=== PATIENT | male | born 1935 | race Caucasian/White ===

== ENCOUNTER 2020-04-22 11:07 | Outpatient (REF) | payer MEDICARE, OTHER, SELFPAY ==
--- NOTE | 2020-04-22 11:16 | XR_ITS ---
EXAMINATION: XR KNEE, LEFT CLINICAL INFORMATION: Left knee effusion COMPARISON: None TECHNIQUE: Four views of the left knee. FINDINGS: There is medial plate and screw fixation hardware at the proximal tibia. Hardware appears intact. No acute fracture or subluxation. Healed fractures of the proximal tibia and fibula. Compartment of joint spaces are maintained at the knee. Enthesophyte formation at the superior pole of the patella. Moderate suprapatellar joint effusion. XR/XR knee LT 4V IMPRESSION: Moderate joint effusion. No acute osseous abnormality. Intact hardware.
== END 2020-04-22 11:08 | disposition home or self-care (01) ==
LOC: HO.HMGCX 11:07
PROVIDERS: Visit Provider Nurse Practitioner Family
DX: M25.462 Effusion, left knee (principal)
CPT/HCPCS: 73564

== ENCOUNTER 2020-04-29 16:21 | Inpatient (IN) | payer MEDICARE, OTHER, SELFPAY ==
--- NOTE | 2020-04-29 | XR_ITS ---
EXAMINATION: XR KNEE, RIGHT CLINICAL INFORMATION: Pain and swelling COMPARISON: None TECHNIQUE: Two views of the right knee. FINDINGS: Bones and soft tissues are normal. No fracture or joint effusion. Alignment is anatomic. Joint spaces are well maintained. No abnormal soft tissue calcification. XR/XR knee RT 2V IMPRESSION: Normal right knee.
[2020-04-29 17:08] VITALS: BP 189/74; RESP 18; TEMP 36.6; O2SAT 97; BMI 23.7
--- NOTE | 2020-04-29 18:33 | ED.LOWEXIN ---
HPI - Extremity Injury (Lower) General Chief Complaint: Extremity Injury, Lower Stated Complaint: KNEE SEELING Time Seen by Provider: 04/29/20 18:28 Source: patient Mode of arrival: wheelchair Limitations: no limitations History of Present Illness HPI Narrative: 85-year-old male with a past medical history of arthritis, hypertension here with right knee pain and swelling and redness since yesterday. No injury or trauma. No fevers or chills or body aches. Went to urgent care had an x-ray and sent to the ED for further evaluation. Onset (ago): day(s) Severity: moderate Other symptoms: none Related Data Home Medications Medication Instructions Recorded Confirmed hydrochlorothiazide 12.5 mg capsule 12.5 mg PO DAILY 04/22/20 04/29/20 Benadryl Allergy PRN 04/29/20 Previous Rx's Medication Instructions Recorded mesalamine 400 mg capsule (with 800 mg PO TID 30 Days #180 ea 04/15/20 delayed release tablets inside) Allergies Allergy/AdvReac Type Severity Reaction Status Date / Time No Known Allergies Allergy Verified 04/29/20 21:23 [No Known Allergies*] Review of Systems Review of Systems: Yes all other systems are reviewed and are negative Constitutional: Constitutional: Reports no additional constitutional complaints, Denies body ache(s), Denies chills, Denies fever(s), Denies headache(s) and Denies weakness Eyes: Eyes: Reports no additional eye complaints and Denies change in vision ENT: Reports system reviewed and no additional complaints, except as documented, Denies dizziness, Denies headache(s), Denies nasal congestion, Denies nasal discharge and Denies neck pain Cardiovascular: Cardiovascular: Reports no additional cardiovascular complaints, Denies chest pain, Denies leg edema and Denies dyspnea Respiratory: Respiratory: Reports no additional respiratory complaints, Denies cough and Denies dyspnea Gastrointestinal: Gastrointestinal: Reports no additional gastrointestinal complaints, Denies abdominal pain, Denies diarrhea, Denies nausea and Denies vomiting Genitourinary: Genitourinary: Denies urinary incontinence Musculoskeletal: Musculoskeletal: Reports no additional musculoskeletal complaints, Denies back pain, Reports arthralgias, Reports joint swelling, Reports limited range of motion, Denies neck pain, Denies numbness and Denies tingling Integumentary/Breasts: Skin/Breast: Reports system reviewed and no additional complaints, except as docu and Denies rash Neurologic: Reports system reviewed and no additional complaints, except as documented, Denies Abnormal speech present, Denies dizziness, Denies headache(s), Denies numbness, Denies tingling and Denies weakness PMFSH Past Medical History Attestation statement: The following information was validated with the patient. Source: old records reviewed and nursing notes reviewed Medical History Arthritis Colon polyp HTN (hypertension) Rectal cancer Social History Social History Advance Directives: No Advance Directives Information Provided: Yes Physical Exam Vital Signs: Vital Signs: Last Vital Signs Temp 99.4 F 04/29/20 21:11 Pulse 94 04/29/20 21:11 Resp 16 04/29/20 21:11 BP 150/77 H 04/29/20 21:11 Pulse Ox 96 04/29/20 21:11 Body Mass Index 23.7 Const: General: cooperative, healthy appearing, comfortable and no acute distress Orientation/consciousness: patient oriented x3 Limitations: no limitations HENMT: Head: Yes normal to inspection Ears: hearing grossly normal bilaterally General nose exam: Normal external nose present Face and sinus: Yes normal facial exam Mouth: Normal oral and palatal mucosa present Throat: Yes posterior oropharynx normal Eyes: General: appearance normal, both eyes and all related structures Pupils: Equal, round and reactive pupils present Neck: Neck: Yes normal visual inspection Chest: Chest palpation & inspection: normal inspection of the chest Resp: Effort & Inspection: normal respiratory effort Auscultation: clear to auscultation bilaterally Cardio: Rate: regular rate Rhythm: regular rhythm Peripheral pulses: Peripheral pulses 2+ throughout GI: Inspection: Yes normal to inspection Palpation (GI): Soft to palpation and nontender Auscultation: normal bowel sounds Back/Spine/Pelvis: Thoracic/Lumbar Spine: thoracic and lumbar spine normal to inspection Skin: General skin exam: no rashes or lesions noted Neuro: General: patient oriented x3, no focal motor deficits and normal sensation to monofilament Cranial nerves: Yes Equal, round and reactive pupils present Cognition (Neuro): normal cognition Speech: No Abnormal speech present Gait exam (Neuro): Normal gait present Motor exam (neuro): 5/5 motor strength present throughout Extrem: Other: The patient has the knee in partial flexion. He is unable to extend the knee. He has warmth and redness and swelling over the patellar area. There is a joint effusion. extending over the anterior leg there is erythema which is not circumferential. General: Yes normal to inspection Course Course Course Narrative: Right knee pain, swelling, redness and warmth since yesterday. Unable to extend the knee. Concern for septic joint. Will need diagnostic tap, labs including blood cultures and lactic acid. 909- Synovial tap shows a WBC count 84,000 with neutrophils 98%. patient has a temp of 100.[address] here. Discussed with Dr. Church (orthopedics) plan for admission. Requesting medicine admit. Patient has already received ceftriaxone. Vancomycin added. Call out to hospitalist to discuss admit. [id number]-Discussed with Dr Cruz who accepted admission. Procedures Joint Aspiration/Injection Joint Asp./Inject. 1: Time Out Performed: No Side of body: right Joint Aspirated: knee Ultrasound Guidance: No Skin Prep: Chlorhexidine Local Anesthetic: lidocaine 2% Needle Size Used: 18G Fluid Obtained: purulent Total fluid obtained (mL): 60 Patient Tolerated Procedure: well Complications: none MDM - Extremity Injury (Lower) MDM Narrative Medical decision making narrative: Bursitis, septic joint, gout Medical Records Attestation: I reviewed the patient's medical records. Lab Data Attestation: I reviewed the patient's lab results. Result diagrams: 04/29/20 19:34 04/29/20 19:34 Labs: Lab Results 04/29/20 04/29/20 04/29/20 Range/Units 19:34 19:34 19:34 WBC 9.5 (4.8-10.8) X10*3/uL RBC 4.66 (4.60-5.80) X10*6/uL Hgb 15.3 (14.0-18.0) g/dl Hct 45.4 (42-52) % MCV 97.4 (80-98) fL MCH 32.8 (27.0-33.0) pg MCHC 33.7 (31.0-36.0) g/dl RDW 12.5 (11.0-16.0) % Plt Count 296 (160-400) X10*3/uL MPV 9.8 (9.4-12.4) fL Immature Gran % (Auto) 0.2 (0.0-0.4) % Neut % (Auto) 79.6 H (45-73) % Lymph % (Auto) 9.5 L (20-40) % [place] % (Auto) 9.7 (2-11) % Eos % (Auto) 0.7 (0-4) % Baso % (Auto) 0.3 (0-2) % Lymph # (Auto) 0.9 L (1.2-4.9) X10*3/uL [place] # (Auto) 0.9 (0.1-1.2) X10*3/uL Eos # (Auto) 0.1 (0.0-0.4) X10*3/uL Baso # (Auto) 0.0 (0.0-0.2) X10*3/uL Abs Immat Gran (auto) 0.02 (0.00-0.03) X10*3/uL Absolute Neuts (auto) 7.5 (2.0-8.3) X10*3/uL Absolute Nucleated RBC 0.000 (0.0-0.012) X10*3/uL Nucleated RBC % (auto) 0.0 (0.0-0.2) /100WBC Sodium 140 (135-145) mmol/L Potassium 3.9 (3.3-5.1) mmol/l Chloride 100 (96-108) mmol/L Carbon Dioxide 29 (22-29) mmol/L Anion Gap 15 (12-20) BUN 22 H (9-16) mg/dL Creatinine 1.15 (0.5-1.4) mg/dL Estim Creat Clear Calc 47.0 Estimated GFR > 60 Random Glucose 108 (60-115) mg/dL Lactic Acid 1.2 (0.5-2.0) mmol/L Calcium 8.4 (8.4-10.2) mg/dL Synovial Source Synovial WBC X10*3/uL Synovial RBC X10*6/uL Synovial Neutrophils % Synovial Monocytes % COVID-19 (MATTHEW) COVID-19 Clin Com 04/29/20 04/29/20 Range/Units 19:41 Unknown WBC (4.8-10.8) X10*3/uL RBC (4.60-5.80) X10*6/uL Hgb (14.0-18.0) g/dl Hct (42-52) % MCV (80-98) fL MCH (27.0-33.0) pg MCHC (31.0-36.0) g/dl RDW (11.0-16.0) % Plt Count (160-400) X10*3/uL MPV (9.4-12.4) fL Immature Gran % (Auto) (0.0-0.4) % Neut % (Auto) (45-73) % Lymph % (Auto) (20-40) % [place] % (Auto) (2-11) % Eos % (Auto) (0-4) % Baso % (Auto) (0-2) % Lymph # (Auto) (1.2-4.9) X10*3/uL [place] # (Auto) (0.1-1.2) X10*3/uL Eos # (Auto) (0.0-0.4) X10*3/uL Baso # (Auto) (0.0-0.2) X10*3/uL Abs Immat Gran (auto) (0.00-0.03) X10*3/uL Absolute Neuts (auto) (2.0-8.3) X10*3/uL Absolute Nucleated RBC (0.0-0.012) X10*3/uL Nucleated RBC % (auto) (0.0-0.2) /100WBC Sodium (135-145) mmol/L Potassium (3.3-5.1) mmol/l Chloride (96-108) mmol/L Carbon Dioxide (22-29) mmol/L Anion Gap (12-20) BUN (9-16) mg/dL Creatinine (0.5-1.4) mg/dL Estim Creat Clear Calc Estimated GFR Random Glucose (60-115) mg/dL Lactic Acid (0.5-2.0) mmol/L Calcium (8.4-10.2) mg/dL Synovial Source Synovial WBC 84.010 X10*3/uL Synovial RBC 0.014 X10*6/uL Synovial Neutrophils 98 % Synovial Monocytes 2 % COVID-19 (MATTHEW) Cancelled COVID-19 Clin Com Cancelled Imaging Data knee xray: Attestation: I personally reviewed and interpreted this imaging study as follows: Radiologist's impression: EXAMINATION: XR KNEE, RIGHT CLINICAL INFORMATION: Pain and swelling COMPARISON: None TECHNIQUE: Two views of the right knee. FINDINGS: Bones and soft tissues are normal. No fracture or joint effusion. Alignment is anatomic. Joint spaces are well maintained. No abnormal soft tissue calcification. XR/XR knee RT 2V IMPRESSION: Normal right knee. Discharge Plan Discharge Clinical Impression: Septic arthritis of knee, right Qualifiers: Septic arthritis organism: due to unspecified organism Qualified Code(s): M00.9 - Pyogenic arthritis, unspecified Patient Disposition: Admitted As Inpatient
[2020-04-29 19:38] LABS: RBC Synovial Fluid 0.014 X10*6/uL
[2020-04-29 19:49] VITALS: BP 111/88; PULSE 93; RESP 18; TEMP 38; O2SAT 95
[2020-04-29 19:52] LABS: MANUAL DIFF FLAG NO
[2020-04-29 20:03] LABS: Basophils Percent Auto 0.3 % (0-2); Eosinophils Absolute Auto 0.1 X10*3/uL (0.0-0.4); Eosinophils Percent Auto 0.7 % (0-4); Hematocrit 45.4 % (42-52); Hemoglobin 15.3 g/dl (14.0-18.0); Imm Gran Abs Auto 0.02 X10*3/uL (0.00-0.03); Imm Gran Pct Auto 0.2 % (0.0-0.4); Lymphocytes Absolute Auto 0.9 X10*3/uL (1.2-4.9); Lymphocytes Percent Auto 9.5 % (20-40); Mean Corpuscular HGB Conc 33.7 g/dl (31.0-36.0); Mean Corpuscular Hemoglobin 32.8 pg (27.0-33.0); Mean Corpuscular Volume 97.4 fL (80-98); Mean Platelet Volume 9.8 fL (9.4-12.4); Monocytes Absolute Auto 0.9 X10*3/uL (0.1-1.2); Monocytes Percent Auto 9.7 % (2-11); Neutrophils Absolute Auto 7.5 X10*3/uL (2.0-8.3); Neutrophils Percent Auto 79.6 % (45-73); Platelet Count 296 X10*3/uL (160-400); Red Blood Count 4.66 X10*6/uL (4.60-5.80); Red Cell Distribution Width 12.5 % (11.0-16.0); White Blood Count 9.5 X10*3/uL (4.8-10.8)
[2020-04-29 20:19] LABS: Lactic Acid 1.2 mmol/L (0.5-2.0)
[2020-04-29 20:23] LABS: Anion Gap 15 (12-20); Blood Urea Nitrogen 22 mg/dL (9-16); Calcium 8.4 mg/dL (8.4-10.2); Carbon Dioxide 29 mmol/L (22-29); Chloride 100 mmol/L (96-108); Estimated Glomerular Filt Rate > 60; Glucose Random 108 mg/dL (60-115); Potassium 3.9 mmol/l (3.3-5.1); Sodium 140 mmol/L (135-145)
[2020-04-29] MEDS: Acetaminophen 325 MG TABLET 650 MG PO (20:27)
[2020-04-29] MEDS: Lidocaine HCl 2 % MPF 5 ML VIAL SUBCUT (20:28)
[2020-04-29] MEDS: cefTRIAXone sodium 1 GM in 0.9 % Sodium Chloride 50 ML IV (20:28)
[2020-04-29 20:35] LABS: MN% 6.6 %; PMN% 93.4 %
[2020-04-29 20:37] LABS: BF Shift QC OK YES; Monocytes Synovial Fluid 2 %; Neutrophils Synovial Fluid 98 %
[2020-04-29 20:38] LABS: Man Diluent Bkgrd OK YES
[2020-04-29 21:11] VITALS: BP 150/77; PULSE 94; RESP 16; TEMP 37.4; O2SAT 96
[2020-04-29 21:41] LABS: COVID-19 Test Negative (Negative); IDNOW Serial# 9DD0AD1C
[2020-04-29] MEDS: vancomycin HCL 1,000 MG in 0.9 % Sodium Chloride 250 ML 270 MG IV (21:53)
[2020-04-29 21:59] VITALS: BP 127/67; PULSE 92; RESP 17; O2SAT 96
[2020-04-29 23:20] VITALS: BP 152/83; PULSE 92; RESP 18; TEMP 37.4; O2SAT 97
[2020-04-29] MEDS: Enoxaparin Sodium 40 MG/0.4 ML SYRINGE SUBCUT (23:29)
[2020-04-29] MEDS: 0.9 % Sodium Chloride Flush 3 ML SYRINGE IVFLUSH (23:29)
--- NOTE | 2020-04-30 00:26 | PM.IMHP ---
History of Present Illness Date of Service: 04/29/20 Chief Complaint: Knee pain and swelling this is a pleasant 85-year-old male with past medical history of hypertension, as well as colitis who presents to the hospital with right knee pain, and swelling. Patient reports that his symptoms started yesterday where he noticed right knee to be swollen, more red and significantly hot. He denies any fever or chills. Patient reports that he has chronic left knee/ leg pain due to injury and replacement and sometimes when his left knee hurts he puts a lot more pressure on the right knee but this time the pain in his right knee was significant to the point that he had to go to urgent care who sent him to the ED for further evaluation. He otherwise denies any history of gout. No chest pain, shortness of breath, headache or change in vision, no abdominal pain nausea or diarrhea, no urinary symptoms. No lower extremity edema except in his Right knee. denies any injury to the right knee. On arrival to the ED hemodynamically stable with no significant abnormal vitals labs are essentially unremarkable with no leukocytosis or any other abnormality arthrocentesis was performed in the ED, orthopedic surgeon was contacted, patient started on IV antibiotics and will be admitted for further management. Past medical history: Hypertension, colitis, history of rectal cancer status post resection past surgical history: Rectal cancer resection Family history: Denies Social history: Comes from home, lives alone, denies tobacco alcohol or illicit drug use Review of Systems Review of Systems: Yes all other systems are reviewed and are negative Neurologic: Reports system reviewed and no additional complaints, except as documented and Denies Abnormal speech present [facility] Medical History Arthritis Colon polyp HTN (hypertension) Rectal cancer Social History Household Members: Family and Other Household Members Other:: sister Housing: House Do you presently have visiting nurse or other home services: No Smoking Status: Former smoker Tobacco Type: Cigarette Smoked in Last 30 Days: No Smoking Quit Date: 2006 Patient Interested in Nicotine Replacement: No Patient Given Instructions on How to Stop Smoking: No Second Hand Smoke Exposure: No Use of substances other than those prescribed or required for medical reasons: No Have you been hit, kicked, punched, or otherwise hurt by someone within the past year? If so, by whom?: No Do you feel safe in your current relationship?: No Is there a partner from a previous relationship who is making you feel unsafe now?: No Are you made to feel afraid or neglected: No Advance Directives: No Advance Directives Information Provided: Yes Do you have thoughts of harming others: None Do you have a plan to hurt others: No Plan Recently lost weight without trying: No Meds Allergies Allergy/AdvReac Type Severity Reaction Status Date / Time No Known Allergies Allergy Verified 04/29/20 21:23 [No Known Allergies*] Home Medications Medication Instructions Recorded Confirmed Type hydrochlorothiazide 12.5 mg capsule 12.5 mg PO DAILY 04/22/20 04/29/20 History Benadryl Allergy 25 mg PO DAILY PRN 04/29/20 04/29/20 History Physical Exam Vital Signs and Narrative: Vital Signs: Last Vital Signs Temp 99.3 F 04/29/20 23:20 Pulse 92 04/29/20 23:20 Resp 18 04/29/20 23:20 BP 152/83 H 04/29/20 23:20 Pulse Ox 97 04/29/20 23:20 Body Mass Index 23.7 Const: General: cooperative and no acute distress Orientation/consciousness: patient oriented x3 Eyes: General: appearance normal, both eyes and all related structures Pupils: Equal, round and reactive pupils present Resp: Effort & Inspection: normal respiratory effort and able to speak in complete sentences Auscultation: clear to auscultation bilaterally Cardio: Rate: regular rate Rhythm: regular rhythm GI: Palpation (GI): Soft to palpation Auscultation: normal bowel sounds Skin: General skin exam: no rashes or lesions noted Neuro: General: patient oriented x3 Cranial nerves: Yes Equal, round and reactive pupils present Cognition (Neuro): normal cognition Speech: No Abnormal speech present Extrem: Other: right knee edema, warmth, tenderness left knee exam within normal with no abnormality Results Labs CBC and Chem 7: 04/29/20 19:34 04/29/20 19:34 Labs: Laboratory Results - last 24 hr 04/29/20 04/29/20 04/29/20 19:34 19:34 19:34 MCV 97.4 MCH 32.8 MCHC 33.7 RDW 12.5 Plt Count 296 MPV 9.8 Immature Gran % (Auto) 0.2 Neut % (Auto) 79.6 H Lymph % (Auto) 9.5 L [place] % (Auto) 9.7 Eos % (Auto) 0.7 Baso % (Auto) 0.3 Lymph # (Auto) 0.9 L [place] # (Auto) 0.9 Eos # (Auto) 0.1 Baso # (Auto) 0.0 Abs Immat Gran (auto) 0.02 Absolute Neuts (auto) 7.5 Absolute Nucleated RBC 0.000 Nucleated RBC % (auto) 0.0 Anion Gap 15 Estim Creat Clear Calc 47.0 Estimated GFR > 60 Random Glucose 108 Lactic Acid 1.2 Calcium 8.4 Synovial Source Synovial WBC Synovial RBC Synovial Neutrophils Synovial Monocytes COVID-19 (MATTHEW) COVID-19 Clin Com 04/29/20 04/29/20 04/29/20 19:41 20:46 Unknown MCV MCH MCHC RDW Plt Count MPV Immature Gran % (Auto) Neut % (Auto) Lymph % (Auto) [place] % (Auto) Eos % (Auto) Baso % (Auto) Lymph # (Auto) [place] # (Auto) Eos # (Auto) Baso # (Auto) Abs Immat Gran (auto) Absolute Neuts (auto) Absolute Nucleated RBC Nucleated RBC % (auto) Anion Gap Estim Creat Clear Calc Estimated GFR Random Glucose Lactic Acid Calcium Synovial Source Synovial WBC 84.010 Synovial RBC 0.014 Synovial Neutrophils 98 Synovial Monocytes 2 COVID-19 (MATTHEW) Cancelled Negative COVID-19 Clin Com Cancelled See Note Imaging Radiologist's Impressions: Impressions Knee X-Ray 04/29/20 00:00 IMPRESSION: Normal right knee. Assessment and Plan (1) Septic arthritis of knee, right: Qualifiers: Septic arthritis organism: due to unspecified organism Qualified Code(s): M00.9 - Pyogenic arthritis, unspecified Status: Acute (2) Knee effusion, left: Status: Acute (3) HTN (hypertension): Status: Acute this is a gentleman with past medical history of hypertension who presents to the hospital with complaints of right knee pain, swelling and tenderness # right knee septic arthritis - status post arthrocentesis in the ED - patient has no systemic evidence of infection at this time - afebrile no leukocytosis Plan: - Follow cultures - broad-spectrum antibiotics - orthopedic consulted # hypertension - stable - continue hydrochlorothiazide # history of colitis - continue family
[2020-04-30 03:28] VITALS: BP 159/80; PULSE 75; RESP 18; TEMP 37.1; O2SAT 96
[2020-04-30 04:40] LABS: MANUAL DIFF FLAG NO
[2020-04-30 04:42] LABS: Basophils Percent Auto 0.3 % (0-2); Eosinophils Percent Auto 0.4 % (0-4); Hematocrit 41.6 % (42-52); Hemoglobin 13.8 g/dl (14.0-18.0); Imm Gran Abs Auto 0.02 X10*3/uL (0.00-0.03); Imm Gran Pct Auto 0.2 % (0.0-0.4); Lymphocytes Absolute Auto 1.2 X10*3/uL (1.2-4.9); Lymphocytes Percent Auto 12.7 % (20-40); Mean Corpuscular HGB Conc 33.2 g/dl (31.0-36.0); Mean Corpuscular Hemoglobin 32.3 pg (27.0-33.0); Mean Corpuscular Volume 97.4 fL (80-98); Mean Platelet Volume 9.6 fL (9.4-12.4); Monocytes Absolute Auto 1.2 X10*3/uL (0.1-1.2); Monocytes Percent Auto 13.1 % (2-11); Neutrophils Absolute Auto 6.6 X10*3/uL (2.0-8.3); Neutrophils Percent Auto 73.3 % (45-73); Platelet Count 262 X10*3/uL (160-400); Red Blood Count 4.27 X10*6/uL (4.60-5.80); Red Cell Distribution Width 12.6 % (11.0-16.0); White Blood Count 9.1 X10*3/uL (4.8-10.8)
[2020-04-30 05:13] LABS: Anion Gap 14 (12-20); Blood Urea Nitrogen 20 mg/dL (9-16); Calcium 7.9 mg/dL (8.4-10.2); Carbon Dioxide 27 mmol/L (22-29); Chloride 99 mmol/L (96-108); Creatinine Clr Calc Pharmacy 50.6; Estimated Glomerular Filt Rate > 60; Glucose Random 124 mg/dL (60-115); Potassium 3.5 mmol/l (3.3-5.1); Sodium 136 mmol/L (135-145)
[2020-04-30] MEDS: Flu Vacc QS2020-21(6mos up)/PF 0.5 ML SYRINGE IM (05:31)
[2020-04-30] MEDS: Acetaminophen 325 MG TABLET 650 MG PO ×2 (05:55→17:14)
[2020-04-30] MEDS: oxyCODONE HCl Immed Release 5 MG TABLET PO ×2 (06:24→12:37)
[2020-04-30 07:18] VITALS: BP 160/82; PULSE 89; RESP 19; TEMP 37.4; O2SAT 94
--- NOTE | 2020-04-30 09:17 | PM.CNOR ---
History of Present Illness HPI Consult date: 04/30/20 Chief complaint: Septic Arthritis Narrative: This is an 85-year-old gentleman who presented to the emergency department yesterday for right knee pain and swelling. He was previously seen at the urgent care clinic and was directed to go to the emergency department. While in the emergency department he was found have an effusion which was aspirated with about 60 cc of cloudy fluid. Synovial fluid showed 84 white blood cells and 98 neutrophils. Currently he has a temperature of 90 degrees and 0.4 and white count of 9.1. He denies injury to the right knee he states that often he has left knee pain from a previous surgery he had therefore he favors the left and pulse all as weight on the right. Patient was admitted to the hospital service to be started on IV antibiotics orthopedics was consult for a further evaluation. Review of Systems Review of Systems: Yes all other systems are reviewed and are negative Constitutional: Constitutional: Denies headache(s) and Denies weakness ENT: Denies dizziness and Denies headache(s) Musculoskeletal: Musculoskeletal: Denies numbness and Denies tingling Neurologic: Reports system reviewed and no additional complaints, except as documented, Denies Abnormal speech present, Denies dizziness, Denies headache(s), Denies numbness, Denies tingling and Denies weakness [facility] Past Medical History Medical History (Updated 04/30/20 @ 09:22 by Corin Power PA-C) Arthritis Colon polyp HTN (hypertension) Rectal cancer Social History Social History Household Members: Family and Other Household Members Other:: sister Housing: House Do you presently have visiting nurse or other home services: No Smoking Status: Former smoker Tobacco Type: Cigarette Smoked in Last 30 Days: No Smoking Quit Date: 2006 Patient Interested in Nicotine Replacement: No Patient Given Instructions on How to Stop Smoking: No Second Hand Smoke Exposure: No Use of substances other than those prescribed or required for medical reasons: No Currently Displaying Signs/Symptoms of Drug Intoxication Withdrawal: No Have you been hit, kicked, punched, or otherwise hurt by someone within the past year? If so, by whom?: No Do you feel safe in your current relationship?: No Is there a partner from a previous relationship who is making you feel unsafe now?: No Are you made to feel afraid or neglected: No Advance Directives: No Advance Directives Information Provided: Yes Do you have thoughts of harming others: None Do you have a plan to hurt others: No Plan Recently lost weight without trying: No Meds Allergies Allergy/AdvReac Type Severity Reaction Status Date / Time No Known Allergies Allergy Verified 04/29/20 21:23 [No Known Allergies*] Home Medications Medication Instructions Recorded Confirmed Type hydrochlorothiazide 12.5 mg capsule 12.5 mg PO DAILY 04/22/20 04/29/20 History Benadryl Allergy 25 mg PO DAILY PRN 04/29/20 04/29/20 History Physical Exam Vital Signs: Vital Signs: Last Vital Signs Temp 99.4 F 04/30/20 07:18 Pulse 89 04/30/20 07:18 Resp 19 04/30/20 07:18 BP 160/82 H 04/30/20 07:18 Pulse Ox 94 04/30/20 07:18 Body Mass Index 23.7 Const: General: cooperative and no acute distress Orientation/consciousness: patient oriented x3 Resp: Effort & Inspection: normal respiratory effort and able to speak in complete sentences Cardio: Peripheral pulses: Peripheral pulses 2+ throughout Neuro: General: patient oriented x3 Speech: No Abnormal speech present Extrem: Other: Right knee skin intact. There is a trace amount of redness over the anterior aspect of the knee along the bursa. There is some warmth. He is able to actively flex the knee to 90 degrees. He can actively extend the knee with about 10 degrees of extension lag. There is a trace amount of joint effusion present. No significant tenderness to palpation. Calf supple nontender. X-rays of the right knee are unremarkable. Trace effusion Results Labs Result Diagrams: 04/30/20 04:23 04/30/20 04:23 Labs: Abnormal lab results 04/29/20 04/29/20 04/30/20 Range/Units 19:34 19:34 04:23 RBC 4.27 L (4.60-5.80) X10*6/uL Hgb 13.8 L (14.0-18.0) g/dl Hct 41.6 L (42-52) % Neut % (Auto) 79.6 H 73.3 H (45-73) % Lymph % (Auto) 9.5 L 12.7 L (20-40) % [place] % (Auto) 13.1 H (2-11) % Lymph # (Auto) 0.9 L (1.2-4.9) X10*3/uL BUN 22 H (9-16) mg/dL Random Glucose (60-115) mg/dL Calcium (8.4-10.2) mg/dL 04/30/20 Range/Units 04:23 RBC (4.60-5.80) X10*6/uL Hgb (14.0-18.0) g/dl Hct (42-52) % Neut % (Auto) (45-73) % Lymph % (Auto) (20-40) % [place] % (Auto) (2-11) % Lymph # (Auto) (1.2-4.9) X10*3/uL BUN 20 H (9-16) mg/dL Random Glucose 124 H (60-115) mg/dL Calcium 7.9 L (8.4-10.2) mg/dL H & H 04/29/20 04/30/20 Range/Units 19:34 04:23 Hgb 15.3 13.8 L (14.0-18.0) g/dl Hct 45.4 41.6 L (42-52) % All other labs normal. Assessment and Plan (1) Effusion, right knee: Status: Acute I discussed the case with Dr. Church and also the explained to the patient that if this does not seem to be a completely infective process that needs surgical intervention at this time. He is responding to IV antibiotics and therefore we will continue to monitor him over the next 24 hours to see if he continues to improve. I would encourage him to get up out of bed and move around and try to work on range of motion of the knee. He can have a regular diet at this time we will keep him NPO after midnight in case things change.
[2020-04-30] MEDS: 0.9 % Sodium Chloride Flush 3 ML SYRINGE IVFLUSH ×3 (09:29→23:24)
[2020-04-30 11:31] VITALS: BP 165/89; PULSE 95; RESP 17; TEMP 37.7; O2SAT 96
--- NOTE | 2020-04-30 12:48 | P.PNIM_ITS ---
Subjective Subjective Date of Service: 04/30/20 Interval History: patient complaining of persistent right knee pain and swelling denies any fever, no chills and no other acute issues since admission. Review of Systems General no headache, no dizziness, no fever chills. CVS no chest pain, no palpitation. Respiratory no cough, no sob Gastrointestinal no nausea, no vomiting, no abdominal pain Physical Exam Vital Signs: Vital Signs: Last Vital Signs Temp 99.8 F 04/30/20 11:31 Pulse 95 04/30/20 11:31 Resp 17 04/30/20 11:31 BP 165/89 H 04/30/20 11:31 Pulse Ox 96 04/30/20 11:31 Body Mass Index 23.7 General patient resting comfortably in no acute distress. Neck supple no JVD. CVS regular rate rhythm, Respiratory lungs clear to auscultation, no respiratory distress Gastrointestinal abdomen soft, nontender, bowel sounds audible. Right knee warm to touch, tender to palpation and hyperemic, + swelling, limited extension Neuro nonfocal patient moving all 4 extremity speech clear. Skin no rash Objective Data Current Medications Generic Name Dose Route Start Last Admin Trade Name Freq PRN Reason Stop Dose Admin Acetaminophen 650 mg 04/29/20 22:44 04/30/20 05:55 Acetaminophen 325 Mg Tablet PO 650 mg Q6H PRN Administration Pain, Mild (Pain Scale 1-3) Amlodipine Besylate 5 mg 04/30/20 12:20 Amlodipine Besylate 5 Mg Tablet PO DAILY [facility] Protocol Diphenhydramine HCl 25 mg 04/30/20 12:47 Diphenhydramine Hcl 25 Mg Tablet PO DAILY PRN Allergy Symptoms Docusate Sodium 100 mg 04/29/20 22:44 Docusate Sodium 100 Mg Capsule PO DAILY PRN Constipation Enoxaparin Sodium 40 mg 04/29/20 23:00 04/29/20 23:29 Enoxaparin Sodium 40 Mg/0.4 Ml Syringe SUBCUT 40 mg Q24H [facility] Administration Ceftriaxone Sodium 1 gm/ 50 mls @ 100 mls/hr 04/30/20 22:00 Sodium Chloride IV Q24H BRYAN Vancomycin HCl 750 mg/ 275 mls @ 183.333 mls/hr 04/30/20 21:00 Vancomycin HCl 500 mg/ Sodium IV Chloride Q24H [facility] Mesalamine 800 mg 04/30/20 15:00 Mesalamine 400 Mg Cap.Drtab. PO TID [facility] Omeprazole 20 mg 04/30/20 12:30 Omeprazole 20 Mg Capsule.Dr PO DAILY@0630 [facility] Ondansetron HCl 4 mg 04/29/20 22:44 Ondansetron Hcl 4 Mg/2 Ml Vial IVPUSH Q8H PRN Nausea and Vomiting Oxycodone HCl 5 mg 04/30/20 01:36 04/30/20 12:37 Oxycodone Hcl Immed Release 5 Mg Tablet PO 5 mg Q6H PRN Administration Pain, Severe (Pain Scale 7-10) Pharmacy Consult 1 each 04/29/20 19:12 Consult Rx Perform Med Rec MISCELLANE ONCE PRN Consult order Prednisone 20 mg 04/30/20 12:25 Prednisone 20 Mg Tablet PO BIDWM [facility] Sodium Chloride 3 ml 04/30/20 00:00 04/30/20 09:29 0.9 % Sodium Chloride Flush 3 Ml Syringe IVFLUSH 3 ml QSHIFT [facility] Administration Labs CBC & Chem 7: 04/30/20 04:23 04/30/20 04:23 Microbiology Microbiology Results: Microbiology 04/29/20 Unknown Knee aspirate Gram Stain - Final 04/29/20 Unknown Knee aspirate Gross Specimen Examination - Final 04/29/20 Unknown Knee aspirate Fluid Crystals - Final 04/29/20 Unknown Knee aspirate Joint Fluid Culture - Preliminary No growth to date. Assessment and Plan (1) Effusion, right knee: Status: Acute (2) HTN (hypertension): Status: Acute Assessment and Plan: # right knee pain swelling and redness different patient diagnosis septic arthritis/ septic bursitis/gout status post right knee aspiration fluid culture showed no growth, there is 1+ intracellular monosodium urate crystals, synovial WBC 94075 with 98% neutrophils, most likely patient has gout will start patient on prednisone 20 mg b.i.d. and add Prilosec for GI prophylaxis, patient being followed by Orthopedic surgery for concern for septic arthritis with seems less likely with no fevers, no WBC count, will follow blood cultures and clinical course, will discontinue hydrochlorothiazide since causes hyperuricemia, obtain LOUIE jones on ceftriaxone and IV vanco day 1 if diagnosis of septic arthritis remains low will discontinue medications once blood cultures are negative. # hypertension - BP elevated will add Norvasc 5 mg by mouth daily since hydrochlorothiazide discontinued due to gout # history of colitis - continue home medications mesalamine,no flare noted. # DVT prophylaxis with Lovenox
[2020-04-30] MEDS: Mesalamine 400 MG CAP.DRTAB. 800 MG PO ×2 (12:50→17:54)
[2020-04-30] MEDS: amLODIPine Besylate 5 MG TABLET PO (12:50)
[2020-04-30] MEDS: Omeprazole 20 MG CAPSULE.DR PO (12:50)
[2020-04-30] MEDS: predniSONE 20 MG TABLET PO ×2 (12:50→17:14)
--- NOTE | 2020-04-30 14:09 | MHC.CM.PN ---
Met with very pleasant gentleman who is A&ox3. Lives with his sister. Is a . Sister, Berenice Holloway ([phone]) is his HCP. Pt in process of finding new PCP. States his PCP retired and He is hoping to see Shyam Santana in May. IMM reviewed and signed. Right knee quite sore with limited ROM. Diagnosis changed to GOUT. May benefit from PT evaluation prior to D/C. D/C plan is home and services pending PT evaluation. MD aware. Will follow for D/C needs
[2020-04-30 15:19] VITALS: BP 149/78; PULSE 99; RESP 18; TEMP 37.6; O2SAT 95
[2020-04-30 19:32] VITALS: BP 143/75; PULSE 79; RESP 18; TEMP 36.8; O2SAT 95
[2020-04-30] MEDS: Enoxaparin Sodium 40 MG/0.4 ML SYRINGE SUBCUT (21:39)
[2020-04-30] MEDS: cefTRIAXone sodium 1 GM in 0.9 % Sodium Chloride 50 ML IV (21:39)
[2020-04-30 23:43] VITALS: BP 133/68; PULSE 66; RESP 18; TEMP 36.6; O2SAT 93
[2020-05-01] VITALS (8 sets, daily range): BP systolic 135–149; BP diastolic 70–81; PULSE 61–92; RESP 17–18; TEMP 36.2–37.3; O2SAT 95–99
[2020-05-01] MEDS: Omeprazole 20 MG CAPSULE.DR PO (06:03)
[2020-05-01] MEDS: Mesalamine 400 MG CAP.DRTAB. 800 MG PO ×3 (08:39→21:40)
[2020-05-01] MEDS: predniSONE 20 MG TABLET PO ×2 (08:40→16:48)
[2020-05-01] MEDS: amLODIPine Besylate 5 MG TABLET PO (08:40)
[2020-05-01] MEDS: 0.9 % Sodium Chloride Flush 3 ML SYRINGE IVFLUSH ×2 (08:41→16:49)
--- NOTE | 2020-05-01 13:22 | HO.PM.IMPN ---
Subjective Subjective Date of Service: 05/01/20 Interval History: patient sitting up in bed eating breakfast feels right knee pain is significantly better but not completely resolved, no fever chills overnight no other acute issues Review of Systems General no headache no dizziness no fever chills. CVS no chest pain, no palpitation. Respiratory no cough, no shortness of breath Gastrointestinal no nausea, no vomiting, no abdominal pain Physical Exam Vital Signs: Vital Signs: Last Vital Signs Temp 97.3 F 05/01/20 11:18 Pulse 83 05/01/20 11:18 Resp 18 05/01/20 11:18 BP 135/70 05/01/20 11:39 Pulse Ox 98 05/01/20 11:39 Body Mass Index 23.7 General patient resting comfortably in no acute distress. Neck is supple no JVD. CVS regular rate rhythm, Respiratory lungs clear to auscultation, no respiratory distress, no wheeze, no rhonchi. Gastrointestinal abdomen soft, nontender, bowel sounds audible Right knee, significant improvement in redness, swelling and tenderness persistent limitation in movement Extremities no edema. Neuro nonfocal Skin no rash Objective Data Current Medications Generic Name Dose Route Start Last Admin Trade Name Freq PRN Reason Stop Dose Admin Acetaminophen 650 mg 04/29/20 22:44 04/30/20 17:14 Acetaminophen 325 Mg Tablet PO 650 mg Q6H PRN Administration Pain, Mild (Pain Scale 1-3) Amlodipine Besylate 5 mg 04/30/20 12:20 05/01/20 08:40 Amlodipine Besylate 5 Mg Tablet PO 5 mg DAILY [facility] Administration Protocol Diphenhydramine HCl 25 mg 04/30/20 12:47 Diphenhydramine Hcl 25 Mg Tablet PO DAILY PRN Allergy Symptoms Docusate Sodium 100 mg 04/29/20 22:44 Docusate Sodium 100 Mg Capsule PO DAILY PRN Constipation Enoxaparin Sodium 40 mg 04/29/20 23:00 04/30/20 21:39 Enoxaparin Sodium 40 Mg/0.4 Ml Syringe SUBCUT 40 mg Q24H [facility] Administration Ceftriaxone Sodium 1 gm/ 50 mls @ 100 mls/hr 04/30/20 22:00 04/30/20 23:06 Sodium Chloride IV Infused Q24H [facility] Infusion Vancomycin HCl 750 mg/ 275 mls @ 183.333 mls/hr 04/30/20 21:00 04/30/20 21:58 Vancomycin HCl 500 mg/ Sodium IV Infused Chloride Q24H [facility] Infusion Mesalamine 800 mg 04/30/20 15:00 05/01/20 08:39 Mesalamine 400 Mg Cap.Drtab. PO 800 mg TID [facility] Administration Omeprazole 20 mg 04/30/20 12:30 05/01/20 06:03 Omeprazole 20 Mg Capsule.Dr PO 20 mg DAILY@0630 [facility] Administration Ondansetron HCl 4 mg 04/29/20 22:44 Ondansetron Hcl 4 Mg/2 Ml Vial IVPUSH Q8H PRN Nausea and Vomiting Oxycodone HCl 5 mg 04/30/20 01:36 04/30/20 12:37 Oxycodone Hcl Immed Release 5 Mg Tablet PO 5 mg Q6H PRN Administration Pain, Severe (Pain Scale 7-10) Pharmacy Consult 1 each 04/29/20 19:12 Consult Rx Perform Med Rec MISCELLANE ONCE PRN Consult order Prednisone 20 mg 04/30/20 12:25 05/01/20 08:40 Prednisone 20 Mg Tablet PO 20 mg BIDWM [facility] Administration Sodium Chloride 3 ml 04/30/20 00:00 05/01/20 08:41 0.9 % Sodium Chloride Flush 3 Ml Syringe IVFLUSH 3 ml QSHIFT [facility] Administration Labs CBC & Chem 7: 04/30/20 04:23 04/30/20 04:23 Microbiology Microbiology Results: Microbiology 04/29/20 Unknown Knee aspirate Gram Stain - Final 04/29/20 Unknown Knee aspirate Gross Specimen Examination - Final 04/29/20 Unknown Knee aspirate Fluid Crystals - Final 04/29/20 Unknown Knee aspirate Joint Fluid Culture - Final No growth after 2 days 04/29/20 19:42 Blood - Venous Blood Culture - Preliminary No growth after 24 hours. 04/29/20 19:34 Blood - Venous Blood Culture - Preliminary No growth after 24 hours. Assessment and Plan (1) Effusion, right knee: Status: Acute (2) HTN (hypertension): Status: Acute (3) Septic arthritis of knee, right: Status: Acute (4) Gout attack: Status: Acute Assessment and Plan: # right knee pain swelling and redness differential diagnosis septic arthritis/ septic bursitis/gout status post right knee aspiration fluid culture showed no growth, there is 1+ intracellular monosodium urate crystals, synovial WBC 81307 with 98% neutrophils, most likely patient has gout patient right knee swelling and pain is improving will continue prednisone 20 mg b.i.d. and Prilosec for GI prophylaxis, patient being followed by Orthopedic surgery for concern for septic arthritis which seems less likely with no fevers, no WBC count, blood cultures x2 are negative, discontinued hydrochlorothiazide since causes hyperuricemia,on ceftriaxone and IV vanco day 2 for concern of septic arthritis, will discontinue medications after d/w ortho. will obtain PT eval at a.m. for dispo plan patient lives at home with sister and has stairs to use. will start weaing prednisone in next 2-3 days will treat for 7- 10 days with prednisone. # hypertension - BP stable started on Norvasc 5 mg by mouth daily since hydrochlorothiazide discontinued due to gout # history of colitis - continue home medications mesalamine,no flare noted. # DVT prophylaxis with Lovenox
[2020-05-01 13:32] LABS: Glucose Synovial Fluid 80
[2020-05-01 13:33] LABS: Total Protein Synovial Fluid 4.6
[2020-05-01 20:57] LABS: Vancomycin Random 7.5 mcg/mL (15-20)
[2020-05-02] MEDS: cefTRIAXone sodium 1 GM in 0.9 % Sodium Chloride 50 ML IV (00:10)
[2020-05-02] MEDS: Enoxaparin Sodium 40 MG/0.4 ML SYRINGE SUBCUT (00:11)
[2020-05-02 03:21] VITALS: BP 132/69; PULSE 69; RESP 18; TEMP 36.6; O2SAT 98
[2020-05-02] MEDS: Omeprazole 20 MG CAPSULE.DR PO (06:34)
[2020-05-02] MEDS: 0.9 % Sodium Chloride Flush 3 ML SYRINGE IVFLUSH (07:19)
[2020-05-02 07:37] VITALS: BP 140/75; PULSE 75; RESP 18; TEMP 36.8; O2SAT 96
[2020-05-02 08:04] VITALS: BP 140/75; PULSE 75; O2SAT 96
[2020-05-02] MEDS: predniSONE 20 MG TABLET PO (08:26)
[2020-05-02] MEDS: Mesalamine 400 MG CAP.DRTAB. 800 MG PO (08:26)
[2020-05-02] MEDS: amLODIPine Besylate 5 MG TABLET PO (08:26)
[2020-05-02 11:38] VITALS: BP 128/69; PULSE 72; RESP 18; TEMP 36.1; O2SAT 96
--- NOTE | 2020-05-02 12:33 | W.PM.IDCN ---
History of Present Illness Data of Consult Service Date: 05/02/20 Requesting physician: Eduardo Light Primary Care Provider: Unknown Physician HPI Reason for consult: right knee pain He presents to ER with discomfort right knee started about 5 days ago He said knee swelled He use warm compresses because he didnt know supposed to apply ice and got worse He has no fever or chills Joint fluid shows 80,000 WBC Gram stain and culture negative He denies tick bite Knee is much better now Review of Systems Constitutional: Constitutional: Denies headache(s) and Denies weakness ENT: Denies dizziness and Denies headache(s) Musculoskeletal: Musculoskeletal: Denies numbness and Denies tingling Neurologic: Reports system reviewed and no additional complaints, except as documented, Denies Abnormal speech present, Denies dizziness, Denies headache(s), Denies numbness, Denies tingling and Denies weakness PMFSH Past Medical History Medical History Arthritis Colon polyp HTN (hypertension) Rectal cancer Social History Social History Household Members: Family and Other Housing: House Smoking Status: Former smoker Tobacco Type: Cigarette Second Hand Smoke Exposure: No service: Yes Current occupational status: retired [employer] Allergies Allergy/AdvReac Type Severity Reaction Status Date / Time No Known Allergies Allergy Verified 04/29/20 21:23 [No Known Allergies*] Home Medications Medication Instructions Recorded Confirmed Type Benadryl Allergy 25 mg PO DAILY PRN 04/29/20 04/29/20 History Physical Exam Vital Signs: Vital Signs: Last Vital Signs Temp 96.9 F 05/02/20 11:38 Pulse 72 05/02/20 11:38 Resp 18 05/02/20 11:38 BP 128/69 05/02/20 11:38 Pulse Ox 96 05/02/20 11:38 Body Mass Index 23.7 Const: General: cooperative HENMT: Head: Yes normal to inspection Eyes: General: appearance normal, both eyes and all related structures Resp: Effort & Inspection: normal respiratory effort Cardio: Rate: regular rate Rhythm: regular rhythm GI: Palpation (GI): Soft to palpation and nontender Neuro: Speech: No Abnormal speech present Extrem: Knee images: 1. erythema Assessment and Plan (1) Effusion, right knee: Problem details: Likely gout with crystals in knee Had response to antibiotics and steroids Possibly Lyme disease also,less likely Status: Acute Would give po Doxycycline until Lyme results back Check as outpatient (2) Gout attack: Status: Acute Results Labs CBC & Chem 7: 04/30/20 04:23 04/30/20 04:23 Microbiology Microbiology Results: Microbiology 04/29/20 19:42 Blood - Venous Blood Culture - Preliminary No growth after 48 hours. 04/29/20 19:34 Blood - Venous Blood Culture - Preliminary No growth after 48 hours. 04/29/20 Unknown Knee aspirate Gram Stain - Final 04/29/20 Unknown Knee aspirate Gross Specimen Examination - Final 04/29/20 Unknown Knee aspirate Fluid Crystals - Final 04/29/20 Unknown Knee aspirate Joint Fluid Culture - Final No growth after 2 days
--- NOTE | 2020-05-02 15:05 | MHC.CM.PN ---
Pt to D/C home today. PT recommends home PT. Recommends using wheeled walker. [facility] to provide home PT. Will see pt on Tuesday. F2F and prescription for wheeled walker requested from Dr. Light. Pt happy to be D/C home. agreeable to home services. Will call sister, Berenice, to arrange transport
--- NOTE | 2020-05-02 15:48 | P.DS_ITS ---
DS: Providers Provider Date of admission: 04/29/20 22:29 Primary care physician: Unknown Physician Consults: 04/30/20 00:21 Consult to Orthopedics Routine Consulting Provider: Denny Church Reason for consultation: septic knee Has provider been notified: Yes 05/02/20 12:11 Consult to Infectious Diseases Routine Consulting Provider: Nemo Santizo Reason for consultation: ? septic arthritis vs gout DS: Diagnosis Discharge Diagnosis (1) Effusion, right knee: Status: Acute Problem details: Likely gout with crystals in knee Had response to antibiotics and steroids Possibly Lyme disease also,less likely (2) Gout attack: Status: Acute DS: Medications Discharge Medications Home Medications: Home Medications Medication Instructions Recorded Confirmed Benadryl Allergy 25 mg PO DAILY PRN 04/29/20 04/29/20 hydrochlorothiazide 50 mg PO DAILY 04/30/20 04/30/20 Previous Rx's Medication Instructions Recorded mesalamine 400 mg capsule (with 800 mg PO TID 30 Days #180 ea 04/15/20 delayed release tablets inside) doxycycline hyclate 100 mg PO Q12H #9 tab 05/02/20 omeprazole 20 mg PO DAILY@0630 #60 cap 05/02/20 prednisone 10 - 40 mg PO DAILY #37 tab 05/02/20 DS: Summary Hospital Course Hospital Course: Date of admission 04/29/20 Discharge Date: 05/02/20 Admission HPI Chief Complaint: Knee pain and swelling this is a pleasant 85-year-old male with past medical history of hypertension, as well as colitis who presents to the hospital with right knee pain, and swelling. Patient reports that his symptoms started yesterday where he noticed right knee to be swollen, more red and significantly hot. He denies any fever or chills. Patient reports that he has chronic left knee/ leg pain due to injury and replacement and sometimes when his left knee hurts he puts a lot more pressure on the right knee but this time the pain in his right knee was significant to the point that he had to go to urgent care who sent him to the ED for further evaluation. He otherwise denies any history of gout. No chest pain, shortness of breath, headache or change in vision, no abdominal pain nausea or diarrhea, no urinary symptoms. No lower extremity edema except in his Right knee. denies any injury to the right knee. On arrival to the ED hemodynamically stable with no significant abnormal vitals labs are essentially unremarkable with no leukocytosis or any other abnormality arthrocentesis was performed in the ED, orthopedic surgeon was contacted, patient started on IV antibiotics and will be admitted for further management. Past medical history: Hypertension, colitis, history of rectal cancer status post resection past surgical history: Rectal cancer resection Hospital course: Patient was admitted with with concern of spetic arthritis and had arthrocentesis and was initiated on broad spec atntibitics with Vancomycin and Zosyn. Synovial fluid analysis showed 84K WBC, gram stain showed no organisms, just poly, there was 1+ intracellular monosodium urate crystals which is consistent with acute gout. He was seen by ortho and in high probably we think the patient has acute gout so he was ultimately give Prednisone for acute gout and cautiously continued IV antibiotics. Blood cultures are negativex and fluid cultures are negative. Patient was also seen by ID and believes that she has gout and also ask for lyme study which is pending. Patient is doing well, pain and swelling signficantly reduced with steroid. Initially we thought he might need to go STR but now is doing much better, walking with walker and prefer to go home with home PT. ID recommends Doxy PO at discharge. Also will give him a walker to go home with. Started on Norvasc for HTN and discontinuing HCTZ. Time Spent with Patient Time attestation: Total time spent providing and/or coordinating discharge services: Physical Exam Vital Signs: Vital Signs: Last Vital Signs Temp 96.9 F 05/02/20 11:38 Pulse 72 05/02/20 11:38 Resp 18 05/02/20 11:38 BP 128/69 05/02/20 11:38 Pulse Ox 96 05/02/20 11:38 Body Mass Index 23.7 DS: Data Data Completed and Pending Labs on day of discharge: 04/29/20 XR knee RT 2V Stat Cell Ct wDiff Synovial Fl Routine Glucose Synovial Fluid Routine Total Protein Synovial Fluid Routine Joint Fld Prof (incl Crystals) Routine 04/29/20 18:32 Lidocaine HCl 2 % MPF [Xylocaine 2 % MPF] 5 ml SUBCUT ONCE ONE 04/29/20 19:12 ED Diet NOW 04/29/20 19:34 Basic Metabolic Panel Stat Complete Blood Count Auto Diff Stat Lactic Acid Stat 04/29/20 19:56 Acetaminophen [Tylenol] 650 mg PO ONCE ONE cefTRIAXone sodium [Rocephin] 1 gm 0.9 % Sodium Chloride [Ns] 50 ml IV ONCE 04/29/20 20:23 cefTRIAXone sodium [Rocephin] 1 gm .ROUTE .STK-MED ONE 04/29/20 20:46 COVID-19 ID NOW ([facility]) Stat 04/29/20 21:02 vancomycin HCL 1,000 mg 0.9 % Sodium Chloride [Ns] 250 ml IV ONCE 04/29/20 21:37 vancomycin HCL 1,000 mg .ROUTE .STK-MED ONE 04/29/20 22:20 Transfer Order Routine 04/29/20 23:35 Flu Vacc [id number](6mos up)/PF [Fluarix Quad [id number]] 0.5 ml IM .ONCE ONE 04/30/20 04:23 Basic Metabolic Panel Routine Complete Blood Count Auto Diff Routine 04/30/20 21:00 vancomycin HCL 750 mg vancomycin HCL 500 mg 0.9 % Sodium Chloride [Ns] 250 ml IV Q24H 04/30/20 21:30 cefTRIAXone sodium [Rocephin] 1 gm .ROUTE .STK-MED ONE 04/30/20 22:00 cefTRIAXone sodium [Rocephin] 1 gm 0.9 % Sodium Chloride [Ns] 50 ml IV Q24H 05/01/20 20:05 Vancomycin Random Routine 05/01/20 21:38 vancomycin HCL 750 mg IV .STK-MED ONE 05/02/20 00:03 cefTRIAXone sodium [Rocephin] 1 gm .ROUTE .STK-[facility] ONE Laboratory Last Values WBC 9.1 X10*3/uL (4.8-10.8) 04/30/20 04:23 RBC 4.27 X10*6/uL (4.60-5.80) L 04/30/20 04:23 Hgb 13.8 g/dl (14.0-18.0) L 04/30/20 04:23 Hct 41.6 % (42-52) L 04/30/20 04:23 MCV 97.4 fL (80-98) 04/30/20 04:23 MCH 32.3 pg (27.0-33.0) 04/30/20 04:23 MCHC 33.2 g/dl (31.0-36.0) 04/30/20 04:23 RDW 12.6 % (11.0-16.0) 04/30/20 04:23 Plt Count 262 X10*3/uL (160-400) 04/30/20 04:23 MPV 9.6 fL (9.4-12.4) 04/30/20 04:23 Immature Gran % (Auto) 0.2 % (0.0-0.4) 04/30/20 04:23 Neut % (Auto) 73.3 % (45-73) H 04/30/20 04:23 Lymph % (Auto) 12.7 % (20-40) L 04/30/20 04:23 [place] % (Auto) 13.1 % (2-11) H 04/30/20 04:23 Eos % (Auto) 0.4 % (0-4) 04/30/20 04:23 Baso % (Auto) 0.3 % (0-2) 04/30/20 04:23 Lymph # (Auto) 1.2 X10*3/uL (1.2-4.9) 04/30/20 04:23 [place] # (Auto) 1.2 X10*3/uL (0.1-1.2) 04/30/20 04:23 Eos # (Auto) 0.0 X10*3/uL (0.0-0.4) 04/30/20 04:23 Baso # (Auto) 0.0 X10*3/uL (0.0-0.2) 04/30/20 04:23 Abs Immat Gran (auto) 0.02 X10*3/uL (0.00-0.03) 04/30/20 04:23 Absolute Neuts (auto) 6.6 X10*3/uL (2.0-8.3) 04/30/20 04:23 Absolute Nucleated RBC 0.000 X10*3/uL (0.0-0.012) 04/30/20 04:23 Nucleated RBC % (auto) 0.0 /100WBC (0.0-0.2) 04/30/20 04:23 Sodium 136 mmol/L (135-145) 04/30/20 04:23 Potassium 3.5 mmol/l (3.3-5.1) 04/30/20 04:23 Chloride 99 mmol/L (96-108) 04/30/20 04:23 Carbon Dioxide 27 mmol/L (22-29) 04/30/20 04:23 Anion Gap 14 (12-20) 04/30/20 04:23 BUN 20 mg/dL (9-16) H 04/30/20 04:23 Creatinine 1.07 mg/dL (0.5-1.4) 04/30/20 04:23 Estim Creat Clear Calc 50.6 04/30/20 04:23 Estimated GFR > 60 04/30/20 04:23 Random Glucose 124 mg/dL (60-115) H 04/30/20 04:23 Lactic Acid 1.2 mmol/L (0.5-2.0) 04/29/20 19:34 Calcium 7.9 mg/dL (8.4-10.2) L 04/30/20 04:23 Synovial Source 04/29/20 Unknown Synovial WBC 84.010 X10*3/uL 04/29/20 Unknown Synovial RBC 0.014 X10*6/uL 04/29/20 Unknown Synovial Neutrophils 98 % 04/29/20 Unknown Synovial Monocytes 2 % 04/29/20 Unknown Synovial Glucose 80 04/29/20 Unknown Synovial Glucose Cancelled 04/29/20 Unknown Synovial Total Protein 4.6 04/29/20 Unknown Synovial Total Protein Cancelled 04/29/20 Unknown Random Vancomycin 7.5 mcg/mL (15-20) L 05/01/20 20:05 COVID-19 (MATTHEW) Negative (Negative) 04/29/20 20:46 COVID-19 Clin Com See Note 04/29/20 20:46 Preliminary micro results at discharge 04/29/20 19:42 Blood Culture - Preliminary Blood - Venous No growth after 48 hours. 04/29/20 19:34 Blood Culture - Preliminary Blood - Venous No growth after 48 hours. Discharge Plan Discharge Anticipated Discharge Date/Time: 05/02/20 14:40 Patient Disposition: Home Health Service Referrals: [facility] [Other] (They will call you. Should see you on Tuesday. If you don't hear from them tomorrow by noon, please call them. You have been given a prescription for a wheeled walker. You can use any medical supply store. [facility] surgical [address] [place] [address]. [phone] Closes at 5pm.) Physician,Unknown [Primary Care Provider] - Discharge Medications: New doxycycline hyclate 100 mg Tablet 100 mg PO Q12H Qty: 9 RF: 0 omeprazole 20 mg Capsule,Delayed Release(Dr/Ec) 20 mg PO DAILY@0630 Qty: 60 RF: 0 prednisone 10 mg tablet 10 - 40 mg PO DAILY Qty: 37 RF: 0 (DME) Ultra-Light Rollator Misc See Rx Instructions .ROUTE .MEDSUPPLY Qty: 1 RF: 0 amlodipine [Norvasc] 5 mg tablet 5 mg PO DAILY Qty: 30 RF: 0 Continued mesalamine 400 mg capsule (with del rel tablets) 800 mg PO TID 30 Days Qty: 180 RF: 2 Benadryl Allergy 25 mg PO DAILY PRN (Reason: Allergy Symptoms) RF: 0 Discontinued hydrochlorothiazide 50 mg Tablet 50 mg PO DAILY RF: 0 Discharge Orders: Discharge Order (Routine); Ordered 05/02/20 Ordered By: Eduardo Light Diet: advance to usual diet Activity on Discharge: As tolerated Discharge Date/Time: 05/02/20 16:05 Visit Report Forms: Patient Portal Discharge page Care Plan Goals: Full recovery from gout attack and arthriis Health Concerns: Newly diagnosed gout Plan of Treatment: Take Prednisone as directed, take Doxycycline as directed. You will have visiting nurse and home PT service. Call on Tuesday and follow up with your Doctor in aweek, call 911 or come back to emergency
[2020-05-02 16:00] VITALS: BP 121/73; PULSE 81; RESP 18; TEMP 36.6; O2SAT 96
[2020-05-03 14:02] LABS: Lyme Abs Screen <0.90 index
== END 2020-05-02 16:05 | disposition home health service (06) | DRG 554 ==
LOC: HO.ED 21:14 → HO.S3 22:42
PROVIDERS: Hospitalist; Internal Medicine; Nurse Practitioner Family; Admitting Provider Internal Medicine; Emergency Provider Emergency Medicine; PCP Internal Medicine; Visit Provider Internal Medicine
DX: M10.9 Gout, unspecified (principal); I10 Essential (primary) hypertension; K52.9 Noninfective gastroenteritis and colitis, unspecified; Z20.828 Contact with and (suspected) exposure to other viral communicable diseases; Z23 Encounter for immunization; Z87.891 Personal history of nicotine dependence; Z79.52 Long term (current) use of systemic steroids; Z79.899 Other long term (current) drug therapy
CPT/HCPCS: 36415; 73560; 80048; 80202; 82945; 83605; 84157; 85025; 86618; 87040; 87071; 87205; 87635; 89051; 89060; 90686; 96365; 96375; 96376; 97110; 97116; 97161; 99285; J0696; J1650; J2405; J3370

== ENCOUNTER → 2020-07-07 14:57 | Outpatient (BNVA) | payer MEDICARE, OTHER, SELFPAY | PROVIDERS: PCP Internal Medicine; Referring Provider Internal Medicine; Visit Provider Internal Medicine Gastroenterology | CPT/HCPCS: Q3014 ==

== ENCOUNTER → 2020-11-21 12:56 | Outpatient (BNV) | payer MEDICARE, SELFPAY | PROVIDERS: PCP Internal Medicine; Visit Provider Internal Medicine | DX: Z85.040 Personal history of malignant carcinoid tumor of rectum (principal) | CPT/HCPCS: 99213; 99214 ==

== ENCOUNTER 2021-02-05 11:10 | Emergency (ER) | payer MEDICARE, OTHER, SELFPAY ==
--- NOTE | ~2021-02-05 | XR_ITS ---
EXAMINATION: XR KNEE, LEFT CLINICAL INFORMATION: Pain. COMPARISON: Radiographs left knee 04/22/2020 TECHNIQUE: 5 views of the left knee. FINDINGS: There are old healed fractures involving the proximal tibia and proximal fibular shafts. Tibial hardware is intact. There is no acute or healing fracture or dislocation or destructive process. No osteolysis. There are no erosive changes or chondrocalcinosis. Suprapatellar effusion at least moderate size is similar to prior exam. Hoffa's fat pad appears normal. Again, there is spurring at the quadriceps insertion patella and near origin patellar tendon. Scattered vascular calcifications again noted. XR/XR knee LT 4V IMPRESSION: 1. Suprapatellar effusion similar to prior exam 2019. 2. No acute bony abnormality. Hardware intact.
[2021-02-05 11:14] VITALS: BP 122/72; PULSE 90; RESP 17; TEMP 36.8; O2SAT 96; BMI 25.0
--- NOTE | 2021-02-05 11:36 | ED_ITS ---
HPI - General Adult General Chief complaint: Extremity Injury, Lower Stated complaint: lt knee pain Time Seen by Provider: 02/05/21 11:35 Source: patient Limitations: language barrier History of Present Illness HPI narrative: Patient presents to the ER with atraumatic left knee pain. Patient states worsening pain right below the kneecap and on the sides of the joint over the past 24-36 hours. Patient has had a procedure to the left knee before and has some hardware in that left knee. Patient describes the pain is achy the pain is a 5/10. No other complaints at this time. Patient denies shortness of breath chest pain nausea vomiting or pain in his left calf. Related Data Home Medications Medication Instructions Recorded Confirmed Benadryl Allergy 25 mg PO DAILY PRN 04/29/20 11/21/20 losartan 50 mg tablet 50 mg PO DAILY 07/07/20 11/21/20 Previous Rx's Medication Instructions Recorded amlodipine 5 mg tablet (Norvasc) 5 mg PO DAILY #30 tab 05/02/20 walker (Ultra-Light Rollator) #1 ea 05/02/20 mesalamine 400 mg capsule (with 800 mg PO TID #180 cap 01/28/21 delayed release tablets inside) tramadol 50 mg tablet 50 mg PO BID PRN #14 tab 02/05/21 Allergies Allergy/AdvReac Type Severity Reaction Status Date / Time No Known Allergies Allergy Verified 02/05/21 11:13 [No Known Allergies*] Review of Systems Constitutional: Constitutional: Denies body ache(s), Denies chills, Denies fever(s) and Denies frequent falls ENT: Denies sore throat Cardiovascular: Cardiovascular: Denies chest pain and Denies dyspnea Respiratory: Respiratory: Denies cough and Denies dyspnea Gastrointestinal: Gastrointestinal: Denies diarrhea, Denies nausea and Denies vomiting Musculoskeletal: Musculoskeletal: Denies back pain, Denies deformity and Reports arthralgias Comments: Left knee pain Neurologic: Denies frequent falls PMFSH Past Medical History Attestation statement: The following information was validated with the patient. Medical History Arthritis Colon polyp HTN (hypertension) Hx of malignant neoplasm of rectum Knee effusion, left Rectal cancer Tubular adenoma of colon Ulcerative colitis Surgical History Hx of colonoscopy Family History Family History Paternal Aunt No problems noted. Social History Social History Household Members: Family and Other Household Members Other:: sister Housing: House Do you presently have visiting nurse or other home services: No Alcohol intake: current Alcohol intake frequency: a few times a month Second Hand Smoke Exposure: No Advance Directives: No Advance Directives Information Provided: No service: Yes Current occupational status: retired Physical Exam Vital Signs: Vital Signs: Last Vital Signs Temp 97.6 F 02/05/21 12:38 Pulse 85 02/05/21 12:38 Resp 18 02/05/21 12:38 BP 135/77 02/05/21 12:38 Pulse Ox 97 02/05/21 12:38 Body Mass Index 25.0 vital signs have been reviewed as normal and appeared to be correct. Blood pressure normal. Heart rate normal. Respiration rate normal. Temperature normal. Oxygen saturation normal. Appearance: Alert. Oriented X3. No acute distress. Head: Normal external exam. Normocephalic. Atraumatic. Eyes: PERRLA. EOMI. ENT: Pharynx normal. Neck: Soft full range of motio CVS: Heart regular rate and rhythm no murmurs and rubs Respiratory: Breath sounds are clear to auscultation bilaterally. No accessory muscle use noted. Abdomen: Soft nontender no rebound or guarding positive bowel sounds Back: Full range of motion noted. Skin: Skin warm and dry. Normal skin color. Normal skin turgor. No ra shes/lesions/lacerations noted. Extremities: Left knee positive joint line tenderness no obvious laxity on drawer test slight edema noted calf is nontender positive pulses positive sensation distally Neuro: Oriented X 3. No motor deficit. No sensory deficit. Reflexes normal. Course Course Course Narrative: Left knee pain Left knee arthritic changes Left knee effusion Left knee degenerative disease osteoarthritis Left knee x-ray pending Medical Decision Making Imaging Data knee: Radiologist's impression: [address] [address] XRay Report Signed Patient: John Meza MR#: [id number] : 1935 Acct:[id number] Age/Sex: 85 / M ADM Date: 02/05/21 Loc: HO.ED Attending Dr: Ordering Physician: Hugo Munguia Date of Service: 02/05/21 Procedure(s): XR knee LT 4V Accession Number(s): [id number] cc: Hugo Munguia ~ EXAMINATION: XR KNEE, LEFT CLINICAL INFORMATION: Pain.? COMPARISON: Radiographs left knee 04/22/2020? TECHNIQUE: 5 views of the left knee. FINDINGS: There are old healed fractures involving the proximal tibia and proximal fibular shafts. Tibial hardware is intact. There is no acute or healing fracture or dislocation or destructive process. No osteolysis. There are no erosive changes or chondrocalcinosis. Suprapatellar effusion at least moderate size is similar to prior exam. Hoffa's fat pad appears normal. Again, there is spurring at the quadriceps insertion patella and near origin patellar tendon. Scattered vascular calcifications again noted.? XR/XR knee LT 4V IMPRESSION: ? 1. Suprapatellar effusion similar to prior exam 2019. 2. No acute bony abnormality. Hardware intact. ? Dictated By: Jax Ivan MD Signed By: <Electronically signed by Jax Ivan MD in OV> 02/05/21 1244 DD/ 1135 TD/TT:? Round Corner Cutter Operator: CASTANO Discharge Plan Discharge Clinical Impression: Left knee pain Qualifiers: Chronicity: chronic Qualified Code(s): M25.562 - Pain in left knee Patient Disposition: Home, Self-Care Instructions: Knee Pain (ED) Additional Instructions: X-ray of the left knee shows a small collection of fluid. All hardware is in place no acute findings Is recommended to follow up with Orthopedics. Prescriptions: New tramadol 50 mg tablet 50 mg PO BID PRN (Reason: severe pain (scale score 7-10)) Qty: 14 RF: 0 No Action mesalamine 400 mg capsule (with del rel tablets) 800 mg PO TID Qty: 180 RF: 2 Benadryl Allergy 25 mg PO DAILY PRN (Reason: Allergy Symptoms) RF: 0 (DME) Ultra-Light Rollator Misc See Rx Instructions .ROUTE .MEDSUPPLY Qty: 1 RF: 0 amlodipine [Norvasc] 5 mg tablet 5 mg PO DAILY Qty: 30 RF: 0 losartan 50 mg tablet 50 mg PO DAILY RF: 0 Referrals: Evan Martinez MD [Physician] - 2 days (Chronic left knee pain)
[2021-02-05 12:38] VITALS: BP 135/77; PULSE 85; RESP 18; TEMP 36.4; O2SAT 97
== END 2021-02-05 13:23 | disposition home or self-care (01) ==
PROVIDERS: Emergency Provider Emergency Medicine; PCP Internal Medicine
DX: M25.562 Pain in left knee (principal); I10 Essential (primary) hypertension; Z79.899 Other long term (current) drug therapy
CPT/HCPCS: 73564; 99283; 99284

== ENCOUNTER → 2021-02-19 14:12 | Outpatient (BNVA) | payer MEDICARE, OTHER, SELFPAY | PROVIDERS: Visit Provider Physician Assistant | DX: M17.32 Unilateral post-traumatic osteoarthritis, left knee (principal); M25.462 Effusion, left knee; I10 Essential (primary) hypertension | CPT/HCPCS: 99202 ==

== ENCOUNTER 2021-10-05 15:14 | Outpatient (REF) | payer MEDICARE, OTHER, SELFPAY ==
[2021-10-05 16:30] LABS: Hemoglobin 15.4 g/dl (14.0-18.0); Imm Gran Abs Auto 0.01 X10*3/uL (0.00-0.03); Imm Gran Pct Auto 0.1 % (0.0-0.4); PLT CLUMP 1; Red Cell Distribution Width 12.8 % (11.0-16.0); SCAN SMEAR FLAG 1
[2021-10-05 16:32] LABS: Basophils Percent Auto 0.6 % (0-2); Eosinophils Absolute Auto 0.2 X10*3/uL (0.0-0.4); Eosinophils Percent Auto 2.4 % (0-4); Hematocrit 47.1 % (42.0-52.0); Lymphocytes Percent Auto 29.2 % (20-40); Mean Corpuscular HGB Conc 32.7 g/dl (31.0-36.0); Mean Corpuscular Hemoglobin 31.8 pg (27.0-33.0); Mean Corpuscular Volume 97.1 fL (80.0-98.0); Monocytes Absolute Auto 0.7 X10*3/uL (0.1-1.2); Monocytes Percent Auto 10.3 % (2-11); Neutrophils Percent Auto 57.4 % (45-73); Red Blood Count 4.85 X10*6/uL (4.60-5.80)
[2021-10-05 16:42] LABS: MANUAL DIFF FLAG NO; Platelet Count 157 X10*3/uL (160-400)
[2021-10-05 16:56] LABS: Alanine Aminotransferase 10 U/L (0-40); Albumin Level 4.2 g/dL (3.5-5.0); Alkaline Phosphatase 82 U/L (39-117); Anion Gap 15 (12-20); Aspartate Amino Transferase 14 U/L (5-37); Bilirubin Total 1.1 mg/dL (0.0-1.0); Blood Urea Nitrogen 18 mg/dL (9-16); Calcium 8.9 mg/dL (8.4-10.2); Carbon Dioxide 25 mmol/L (22-29); Chloride 103 mmol/L (96-108); Estimated Glomerular Filt Rate 43; Glucose Random 91 mg/dL (60-115); Potassium 4.5 mmol/L (3.3-5.1); Sodium 138 mmol/L (135-145); Total Protein 7.2 g/dL (6.5-8.0)
== END 2021-10-05 15:15 | disposition home or self-care (01) ==
LOC: HO.LAB 15:14
PROVIDERS: PCP Internal Medicine; Visit Provider Nurse Practitioner
DX: C20 Malignant neoplasm of rectum (principal); D12.6 Benign neoplasm of colon, unspecified; K51.90 Ulcerative colitis, unspecified, without complications
CPT/HCPCS: 36415; 80053; 85025; 99212

== ENCOUNTER 2022-12-24 09:12 | Observation (INO) | payer MEDICARE, OTHER, SELFPAY ==
[2022-12-24] VITALS (13 sets, daily range): BP systolic 125–160; BP diastolic 53–81; PULSE 68–110; RESP 14–20; TEMP 36.4–37.3; O2SAT 93–98; BMI 24.5
--- NOTE | ~2022-12-24 | CT_ITS ---
EXAMINATION: CT HEAD WITHOUT CONTRAST CLINICAL INFORMATION: Lightheadedness. COMPARISON: No relevant prior imaging. TECHNIQUE: Contiguous axial imaging was performed from the skull base to vertex without intravenous administration of contrast. This CT examination was performed using dose optimization techniques as appropriate, variously including the following: *Automated exposure control *Adjustment of mA and/or kV according to patient size (this includes techniques or standardized protocols for targeted exams where dose is matched to indication/reason for exam; i.e. extremities or head) *Use of iterative reconstruction technique DLP: 658 mGy-cm FINDINGS: There is no acute intracranial hemorrhage or abnormal extra-axial collection. No intracranial mass effect or midline shift. Lateral and third ventricles are normal. No hydrocephalus. A few scattered nonspecific foci of hypoattenuation within the periventricular white matter. Oliveros-white matter differentiation is otherwise preserved and there is no evidence of acute territorial infarct. The calvarium and skull base are intact. Mastoid air cells and middle ear cavities are well aerated. No active paranasal sinus disease. CT/CT head/brain wo IV con IMPRESSION: There are a few scattered chronic small vessel ischemic changes within the periventricular white matter. Otherwise unremarkable examination. No evidence of acute territorial infarct or hemorrhage.
--- NOTE | ~2022-12-24 | XR_ITS ---
EXAMINATION: XR CHEST CLINICAL INFORMATION: Pneumonia COMPARISON: 11/16/2017 TECHNIQUE: Frontal view of the chest was obtained. FINDINGS: Cardiac leads overlie the chest. Mild elevation of the left hemidiaphragm. Underlying gas filled bowel. The lungs are otherwise well expanded. Small right pleural effusion. Mild hazy opacity at the periphery of the right midlung. No pneumothorax. No edema. The cardiomediastinal silhouette is unchanged. XR/XR chest 1V IMPRESSION: Small right pleural effusion. Hazy opacity at the periphery of the right midlung is nonspecific. This could represent atelectasis or pneumonia.
--- NOTE | 2022-12-24 09:37 | PC.NURSE ---
per pt - got home yesterday and had a near syncopal episode, pt reports feeling dizzy and like he was going to pass out . This morning when pt woke up he was having the same feeling. Pt states that this has never happened before. Pt reports that he has been under a lot of stress at home. Pt changed over by PCT and is resting comfortably.
--- NOTE | 2022-12-24 09:42 | ECG_ITS ---
Test Reason : syncope Blood Pressure : / mmHG Vent. Rate : 064 BPM Atrial Rate : 064 BPM P-R Int : 124 ms QRS Dur : 072 ms QT Int : 414 ms P-R-T Axes : 037 013 026 degrees QTc Int : 427 ms Sinus rhythm with Premature atrial complexes Otherwise normal ECG When compared with ECG of 03-FEB-2015 06:32, Premature atrial complexes are now Present Referred By: Zoltan Silvestre Electronically Signed By:Patrick Freeman
[2022-12-24] MEDS: 0.9 % Sodium Chloride 1,000 ML 999 ML IV ×2 (09:54→14:41)
[2022-12-24] MEDS: iohexoL 350 MG/ML 100 ML INFUS..BTL IV (10:18)
[2022-12-24 10:28] LABS: Eosinophils Absolute Auto 0.1 X10*3/uL (0.0-0.4); Eosinophils Percent Auto 1.6 % (0-4); Hematocrit 40.6 % (42.0-52.0); Hemoglobin 13.7 g/dl (14.0-18.0); Imm Gran Abs Auto 0.01 X10*3/uL (0.00-0.03); Imm Gran Pct Auto 0.3 % (0.0-0.4); Lymphocytes Absolute Auto 0.9 X10*3/uL (1.2-4.9); Lymphocytes Percent Auto 22.2 % (20-40); MANUAL DIFF FLAG NO; Mean Corpuscular HGB Conc 33.7 g/dl (31.0-36.0); Mean Corpuscular Hemoglobin 32.4 pg (27.0-33.0); Mean Platelet Volume 9.7 fL (9.4-12.4); Monocytes Absolute Auto 0.3 X10*3/uL (0.1-1.2); Monocytes Percent Auto 8.4 % (2-11); Neutrophils Absolute Auto 2.6 x10*3/uL (2.0-8.3); Neutrophils Percent Auto 66.5 % (45-73); Platelet Count 165 X10*3/uL (160-400); Red Blood Count 4.23 X10*6/uL (4.60-5.80); Red Cell Distribution Width 12.9 % (11.0-16.0); White Blood Count 3.8 X10*3/uL (4.8-10.8)
[2022-12-24 10:36] LABS: Prothrombin Time 11.1 SEC (10.0-13.1)
[2022-12-24] MEDS: ondansetron HCL 4 MG/2 ML VIAL IVPUSH (10:36)
[2022-12-24 10:38] LABS: Partial Thromboplastin Time 25.7 SEC (26.0-36.4)
[2022-12-24 10:52] LABS: Alanine Aminotransferase 7 U/L (0-40); Albumin Level 3.5 g/dL (3.5-5.0); Alkaline Phosphatase 57 U/L (39-117); Anion Gap 11 (12-20); Aspartate Amino Transferase 10 U/L (5-37); Bilirubin Total 0.9 mg/dL (0.0-1.0); Blood Urea Nitrogen 31 mg/dL (9-16); Calcium 8.3 mg/dL (8.4-10.2); Carbon Dioxide 21 mmol/L (22-29); Chloride 109 mmol/L (96-108); Creatinine Clr Calc Pharmacy 28.3; Estimated Glomerular Filt Rate 35; Glucose Random 110 mg/dL (60-115); Lipase 43 U/L (8-78); Potassium 4.2 mmol/L (3.3-5.1); Sodium 137 mmol/L (135-145); Total Protein 5.9 g/dL (6.5-8.0)
[2022-12-24 10:55] LABS: Troponin-I High Sensitivity < 2.7 ng/L (<3.5-35.0)
[2022-12-24 11:04] LABS: COVID-19 Test Negative (Negative); IDNOW Serial# 08D9AD1C
--- NOTE | 2022-12-24 12:06 | ED.GENADULT ---
HPI - General Adult General Chief complaint: Syncope Stated complaint: Near syncopal episode per EMS Time Seen by Provider: 12/24/22 09:35 Source: patient Mode of arrival: ambulatory Limitations: no limitations History of Present Illness HPI narrative: 87 yold male with pmh of HTN presents to the ED for near syncope yesterday, episode of dizziness last night, and this morning lighteadedness. patient denies any chest pain, SOB, slurred speech, facial droop, paralsysis of extremities, or trouble walking. Patient denies any abdominal pain, leg pain, calf pain, dysuria, hematuria, or any other concerning symptoms. patient denies hitting head, falling, or loss of consciosuness. Related Data Home Medications Medication Instructions Recorded Confirmed losartan 50 mg tablet 50 mg PO DAILY 07/07/20 12/24/22 loratadine 10 mg tablet 10 mg PO DAILY 12/24/22 12/24/22 Previous Rx's Medication Instructions Recorded amlodipine 5 mg tablet (Norvasc) 5 mg PO DAILY #30 tabs 05/02/20 Allergies Allergy/AdvReac Type Severity Reaction Status Date / Time No Known Allergies Allergy Verified 11/23/21 12:56 [No Known Allergies*] Review of Systems Review of Systems: Ligtheadedness Yes all other systems are reviewed and are negative PMFSH Past Medical History Medical History Arthritis Colon polyp HTN (hypertension) Hx of malignant neoplasm of rectum Knee effusion, left Rectal cancer Tubular adenoma of colon Ulcerative colitis Surgical History Hx of colonoscopy Family History Family History Paternal Aunt No problems noted. Social History Social History Household Members: Family and Other Household Members Other:: sister Housing: House Are you a primary child care education coordinator to a significant other at home: No Do you presently have visiting nurse or other home services: No Alcohol intake: current Alcohol intake frequency: a few times a month Alcohol type: hard liquor Patient Tobacco Use Status: Former Tobacco user Quit Date: 2002 Tobacco use type: Cigarette Second Hand Smoke Exposure: No service: No Current occupational status: retired Physical Exam ED Vital Signs: Vital Signs - 24 hr 12/24/22 09:30 12/24/22 09:34 12/24/22 10:49 Temperature 98.4 F 97.8 F Pulse Rate 100 69 Respiratory Rate 18 16 Blood Pressure 131/74 125/63 Pulse Oximetry 94 95 95 Oxygen Delivery Method Room Air Room Air Room Air 12/24/22 12:06 12/24/22 14:28 12/24/22 14:30 Temperature 97.7 F 98.3 F Pulse Rate 68 91 76 Respiratory Rate 14 16 Blood Pressure 129/67 153/53 H 153/53 H Pulse Oximetry 97 95 Oxygen Delivery Method Room Air Room Air 12/24/22 14:30 12/24/22 14:33 Temperature Pulse Rate 87 82 Respiratory Rate Blood Pressure 137/66 128/65 Pulse Oximetry Oxygen Delivery Method BMI result Body Mass Index 24.5 Const General: cooperative, healthy appearing, comfortable, no acute distress, well developed, alert, awake and Physically active Orientation/consciousness: oriented to person, oriented to place, oriented to time and patient oriented x3 HENMT Head: Yes normal to inspection, Yes No palpable skull fracture present, Yes normocephalic, Yes atraumatic and No abrasion Ears: hearing grossly normal bilaterally, external ears normal, TM's normal bilaterally, TM normal on the right, TM normal on the left, EAC's normal, mastoids normal and no periauricular adenopathy Eyes Other: negative nystagmus General: appearance normal, both eyes and all related structures Neck Neck: Yes normal visual inspection, Yes full ROM, Yes no lymphadenopathy, Yes no meningeal signs, Yes trachea midline, Yes supple, No anterior neck swelling and No tender Chest Chest palpation & inspection: normal inspection of the chest and normal palpation of entire chest wall Resp Effort & Inspection: normal respiratory effort and able to speak in complete sentences Auscultation: clear to auscultation bilaterally Cardio Jugular venous distension: no JVD Heart sounds: S1 normal heart sound present and S2 normal heart sound present GI Inspection: Yes normal to inspection and No abdominal wall ecchymosis Palpation (GI): Soft to palpation, not firm, nontender, no guarding and not rigid General: No CVA tenderness and Yes no CVA tenderness Back/Spine/Pelvis Back: no CVA tenderness, No CVA tenderness and No back tenderness Skin General skin exam: no rashes or lesions noted and elasticity normal Neuro General: oriented to person, oriented to place, oriented to time, patient oriented x3, gait normal, tone normal, moves all extremities, Normal light touch and pain sensation, no meningeal signs, no focal motor deficits and CN's II-XI intact bilaterally Extrem Other: Bilateral lower extremity negative for swelling, pitting edema, or calf tenderness on palpation. General: Yes normal to inspection and Yes full ROM Psych Appearance: grossly normal, well kempt and not disheveled Medications Administered Generic Name Dose Route Start Last Admin Trade Name Freq PRN Reason Stop Dose Admin Amlodipine Besylate 5 mg 12/25/22 09:00 12/26/22 07:56 Amlodipine Besylate 5 Mg Tablet PO 5 mg DAILY BRYAN Administration Protocol Enoxaparin Sodium 40 mg 12/25/22 16:30 12/25/22 17:28 Enoxaparin Sodium 40 Mg/0.4 Ml Syringe SUBCUT 40 mg Q24H BRYAN Administration Sodium Chloride 1,000 mls @ 100 mls/hr 12/24/22 15:45 12/26/22 07:45 Ns IVCONT 0 mls/hr .Q10H BRYAN Infusion Loratadine 10 mg 12/25/22 09:00 12/26/22 07:56 Loratadine 10 Mg Tablet PO 10 mg DAILY BRYAN Administration Losartan Potassium 50 mg 12/26/22 09:15 12/26/22 09:41 Losartan Potassium 50 Mg Tablet PO 50 mg DAILY BRYAN Administration Protocol Sodium Chloride 3 ml 12/24/22 16:00 12/26/22 07:57 0.9 % Sodium Chloride Flush 3 Ml Syringe IVFLUSH 3 ml QSHIFT BRYAN Administration Discontinued Medications Generic Name Dose Route Start Last Admin Trade Name Freq PRN Reason Stop Dose Admin Enoxaparin Sodium 30 mg 12/24/22 17:00 12/24/22 16:31 Enoxaparin Sodium 30 Mg/0.3 Ml Syringe SUBCUT 30 mg Q24H BRYAN Administration Sodium Chloride 1,000 mls @ 999 mls/hr 12/24/22 09:42 12/24/22 14:37 Ns IV 12/24/22 10:42 Infused .Q1H1M STA Infusion Sodium Chloride 1,000 mls @ 999 mls/hr 12/24/22 13:51 12/24/22 16:27 Ns IV 12/24/22 14:51 Infused .Q1H1M STA Infusion Iohexol 100 ml 12/24/22 10:17 12/24/22 10:18 Iohexol 350 Mg/Ml 100 Ml Infus..Btl IV 12/24/22 10:18 85 ml ONCE ONE Administration Ondansetron HCl 4 mg 12/24/22 10:31 12/24/22 10:36 Ondansetron Hcl 4 Mg/2 Ml Vial IVPUSH 12/24/22 10:32 4 mg ONCE ONE Administration Medical Decision Making Medical Decision Making [facility] Narrative: 87-year-old male with history of high blood pressure presents to the ED for new syncope and dizziness described as room spinning yesterday. Today patient complaint is just lightheadedness. Patient denies any slurred speech, facial droop, paralysis of extremities, chest pain, shortness of breath, leg swelling, calf pain, coughing up blood, loss of vision, or any recent trauma. Patient states no fever or chills. Patient states nauseous. Due to AH patient have medical workup looking for signs of myocardial infarction and infection such as pneumonia, UTI, and COVID. Orthostatics ordered. negative for any neuro deficits. NIH score 14:37. Orthostatics positive. patient stills feel weak. Patient admitted for orthostatic hypotension and acute on chronic kidney injury Differential Diagnosis Differential Diagnoses: The differential diagnosis associated with the presentation includes ( dehydration, orthostatic hypertension, myocardial infarction, stroke, UTI, pneumonia) Admission/Observation Consideration of admission/observation: Escalation of care including admission/observation considered Consult Healthcare Provider Management of the patient was discussed with: Scout Executive (Hospitalist Dr. Davis) Lab Data [facility] Lab Attestation statement: I reviewed the patient's lab results. 12/24/22 10:21 12/24/22 10:21 Labs: Lab Results 12/24/22 12/24/22 12/24/22 Range/Units 10:21 10:21 10:21 WBC 3.8 L (4.8-10.8) X10*3/uL RBC 4.23 L (4.60-5.80) X10*6/uL Hgb 13.7 L (14.0-18.0) g/dl Hct 40.6 L (42.0-52.0) % MCV 96.0 (80.0-98.0) fL MCH 32.4 (27.0-33.0) pg MCHC 33.7 (31.0-36.0) g/dl RDW 12.9 (11.0-16.0) % Plt Count 165 (160-400) X10*3/uL MPV 9.7 (9.4-12.4) fL Immature Gran % (Auto) 0.3 (0.0-0.4) % Neut % (Auto) 66.5 (45-73) % Lymph % (Auto) 22.2 (20-40) % Merrick % (Auto) 8.4 (2-11) % Eos % (Auto) 1.6 (0-4) % Baso % (Auto) 1.0 (0-2) % Lymph # (Auto) 0.9 L (1.2-4.9) X10*3/uL Merrick # (Auto) 0.3 (0.1-1.2) X10*3/uL Eos # (Auto) 0.1 (0.0-0.4) X10*3/uL Baso # (Auto) 0.0 (0.0-0.2) X10*3/uL Abs Immat Gran (auto) 0.01 (0.00-0.03) X10*3/uL Absolute Neuts (auto) 2.6 (2.0-8.3) x10*3/uL Absolute Nucleated RBC 0.000 (0.0-0.012) X10*3/uL Nucleated RBC % (auto) 0.0 (0.0-0.2) /100WBC PT 11.1 (10.0-13.1) SEC INR 1.0 (0.9-1.1) APTT 25.7 L (26.0-36.4) SEC Sodium 137 (135-145) mmol/L Potassium 4.2 (3.3-5.1) mmol/L Chloride 109 H (96-108) mmol/L Carbon Dioxide 21 L (22-29) mmol/L Anion Gap 11 L (12-20) BUN 31 H (9-16) mg/dL Creatinine 1.84 H (0.5-1.4) mg/dL Estim Creat Clear Calc 28.3 Estimated GFR 35 Random Glucose 110 (60-115) mg/dL Calcium 8.3 L D (8.4-10.2) mg/dL Magnesium 1.8 (1.6-2.6) mg/dL Total Bilirubin 0.9 (0.0-1.0) mg/dL AST 10 (5-37) U/L ALT 7 (0-40) U/L Alkaline Phosphatase 57 (39-117) U/L Total Creatine Kinase 72 (38-174) U/L Troponin I High Sens (<3.5-35.0) ng/L B-Natriuretic Peptide (<100) pg/mL Total Protein 5.9 L (6.5-8.0) g/dL Albumin 3.5 (3.5-5.0) g/dL Lipase 43 (8-78) U/L COVID-19 (MATTHEW) (Negative) COVID-19 Clin Com 12/24/22 12/24/22 12/24/22 Range/Units 10:21 10:21 14:40 WBC (4.8-10.8) X10*3/uL RBC (4.60-5.80) X10*6/uL Hgb (14.0-18.0) g/dl Hct (42.0-52.0) % MCV (80.0-98.0) fL MCH (27.0-33.0) pg MCHC (31.0-36.0) g/dl RDW (11.0-16.0) % Plt Count (160-400) X10*3/uL MPV (9.4-12.4) fL Immature Gran % (Auto) (0.0-0.4) % Neut % (Auto) (45-73) % Lymph % (Auto) (20-40) % Merrick % (Auto) (2-11) % Eos % (Auto) (0-4) % Baso % (Auto) (0-2) % Lymph # (Auto) (1.2-4.9) X10*3/uL Merrick # (Auto) (0.1-1.2) X10*3/uL Eos # (Auto) (0.0-0.4) X10*3/uL Baso # (Auto) (0.0-0.2) X10*3/uL Abs Immat Gran (auto) (0.00-0.03) X10*3/uL Absolute Neuts (auto) (2.0-8.3) x10*3/uL Absolute Nucleated RBC (0.0-0.012) X10*3/uL Nucleated RBC % (auto) (0.0-0.2) /100WBC PT (10.0-13.1) SEC INR (0.9-1.1) APTT (26.0-36.4) SEC Sodium (135-145) mmol/L Potassium (3.3-5.1) mmol/L Chloride (96-108) mmol/L Carbon Dioxide (22-29) mmol/L Anion Gap (12-20) BUN (9-16) mg/dL Creatinine (0.5-1.4) mg/dL Estim Creat Clear Calc Estimated GFR Random Glucose (60-115) mg/dL Calcium (8.4-10.2) mg/dL Magnesium (1.6-2.6) mg/dL Total Bilirubin (0.0-1.0) mg/dL AST (5-37) U/L ALT (0-40) U/L Alkaline Phosphatase (39-117) U/L Total Creatine Kinase (38-174) U/L Troponin I High Sens < 2.7 (<3.5-35.0) ng/L B-Natriuretic Peptide 36 (<100) pg/mL Total Protein (6.5-8.0) g/dL Albumin (3.5-5.0) g/dL Lipase (8-78) U/L COVID-19 (MATTHEW) Negative (Negative) COVID-19 Clin Com See Note 12/24/22 12/24/22 Range/Units 14:45 14:45 WBC (4.8-10.8) X10*3/uL RBC (4.60-5.80) X10*6/uL Hgb (14.0-18.0) g/dl Hct (42.0-52.0) % MCV (80.0-98.0) fL MCH (27.0-33.0) pg MCHC (31.0-36.0) g/dl RDW (11.0-16.0) % Plt Count (160-400) X10*3/uL MPV (9.4-12.4) fL Immature Gran % (Auto) (0.0-0.4) % Neut % (Auto) (45-73) % Lymph % (Auto) (20-40) % Merrick % (Auto) (2-11) % Eos % (Auto) (0-4) % Baso % (Auto) (0-2) % Lymph # (Auto) (1.2-4.9) X10*3/uL Merrick # (Auto) (0.1-1.2) X10*3/uL Eos # (Auto) (0.0-0.4) X10*3/uL Baso # (Auto) (0.0-0.2) X10*3/uL Abs Immat Gran (auto) (0.00-0.03) X10*3/uL Absolute Neuts (auto) (2.0-8.3) x10*3/uL Absolute Nucleated RBC (0.0-0.012) X10*3/uL Nucleated RBC % (auto) (0.0-0.2) /100WBC PT (10.0-13.1) SEC INR (0.9-1.1) APTT (26.0-36.4) SEC Sodium 139 (135-145) mmol/L Potassium 4.3 (3.3-5.1) mmol/L Chloride 108 (96-108) mmol/L Carbon Dioxide 25 (22-29) mmol/L Anion Gap 10 L (12-20) BUN 31 H (9-16) mg/dL Creatinine 1.77 H (0.5-1.4) mg/dL Estim Creat Clear Calc 29.5 Estimated GFR 37 Random Glucose 125 H (60-115) mg/dL Calcium 8.5 (8.4-10.2) mg/dL Magnesium (1.6-2.6) mg/dL Total Bilirubin 1.0 (0.0-1.0) mg/dL AST 13 (5-37) U/L ALT 7 (0-40) U/L Alkaline Phosphatase 65 (39-117) U/L Total Creatine Kinase (38-174) U/L Troponin I High Sens < 2.7 (<3.5-35.0) ng/L B-Natriuretic Peptide (<100) pg/mL Total Protein 6.5 (6.5-8.0) g/dL Albumin 3.8 (3.5-5.0) g/dL Lipase (8-78) U/L COVID-19 (MATTHEW) (Negative) COVID-19 Clin Com Independent Interpretation I performed an independent interpretation of an: EKG ( Sinus rhythm with premature atrial complex. Ventricular rate 64. VA interval 124. QRS 72. QTC 427. Negative STEMI) and CT Scan Radiology Impression Discussion of test interpretation with radiology: I have reviewed the radiologist's reading. Discharge Plan Discharge Clinical Impression: Syncope Patient Disposition: Admitted As Inpatient Interventions: Admission Worksheet (ED) Last Done: 12/24/22 18:01 Discharge Date/Time: 12/24/22 18:08
--- NOTE | 2022-12-24 14:41 | PC.NURSE ---
fluids hung per order.
[2022-12-24 14:58] LABS: Magnesium 1.8 mg/dL (1.6-2.6)
[2022-12-24 15:09] LABS: Alanine Aminotransferase 7 U/L (0-40); Albumin Level 3.8 g/dL (3.5-5.0); Alkaline Phosphatase 65 U/L (39-117); Anion Gap 10 (12-20); Aspartate Amino Transferase 13 U/L (5-37); Blood Urea Nitrogen 31 mg/dL (9-16); Calcium 8.5 mg/dL (8.4-10.2); Carbon Dioxide 25 mmol/L (22-29); Chloride 108 mmol/L (96-108); Creatinine Clr Calc Pharmacy 29.5; Estimated Glomerular Filt Rate 37; Glucose Random 125 mg/dL (60-115); Potassium 4.3 mmol/L (3.3-5.1); Sodium 139 mmol/L (135-145); Total Protein 6.5 g/dL (6.5-8.0)
[2022-12-24 15:13] LABS: B Type Natriuretic Peptide 36 pg/mL (<100)
[2022-12-24 15:20] LABS: Troponin-I High Sensitivity < 2.7 ng/L (<3.5-35.0)
--- NOTE | 2022-12-24 15:32 | PHA.MEDREC ---
Pharmacy Consult ? Medication Reconciliation Pharmacy has completed the medication reconciliation. spoke to patient mack
--- NOTE | 2022-12-24 15:45 | PM.IMHP ---
History of Present Illness Date of Service: 12/24/22 Attending physician on admission: Db Davis Chief Complaint: Dizziness 87-year-old male with history of hypertension, ulcerative colitis, and history of rectal cancer s/p resection presents to the ED from home for evaluation of near syncope. He reports this morning he woke up and when he stood he felt very lightheaded like he was going to pass out but did not actually syncopize. He denies history of similar episodes. He does state that he does not drink much water at baseline. Denies any recent illness. No fevers, chills, abdominal pain, nausea, vomiting, urinary symptoms, diarrhea, palpitations, vertigo, or chest pain. On arrival, vitals stable though slightly tachycardic to 100. Following IV fluid administration, Orthostatic vital signs were performed and remained positive. Patient states he stood up to ambulate and felt immediately lightheaded and had to sit down. He is leukopenic the 3.8 with mild normocytic anemia of 13.7/42.6%. Creatinine 1.77, baseline around 1.44. BUN 31. Electrolyte levels normal. Total CK 72. BNP 36. Troponin undetectable. COVID-[address] negative for any acute intracranial abnormality which shows few scattered chronic small vessel ischemic changes within the periventricular white matter. Chest x-ray shows small right pleural effusion with hazy opacity at the periphery of the right midlung which is nonspecific possibly field sales representative of atelectasis versus pneumonia. He denies feeling unwell or any cough or shortness of breath. EKG shows sinus rhythm with PACs, rate [address]/T-wave abnormality. On clinical research monitor he is noted to have frequent PACs. In the ED, received 2 L IV NS and ondansetron. He does endorse drinking a coffee alcohol beverage nightly, but no illicit drug use and is a former smoker. Review of Systems Review of Systems: General: No fevers, malaise, unintentional weight loss HEENT: No blurred vision, diplopia. No sore throat, nasal congestion, rhinorrhea, sinus pain, ear pain Cardiovascular: No chest pain, palpitations, or leg edema Respiratory: No shortness of breath, wheezing, cough GI: No abdominal pain, nausea, vomiting, diarrhea, constipation, melena, hematochezia : No dysuria, hematuria, increased urinary frequency, decreased urinary output MSK: No myalgia, back pain Neuro: No headaches, weakness, paresthesias. + near syncope Skin: No rashes or lesions [facility] Medical History Arthritis Colon polyp HTN (hypertension) Hx of malignant neoplasm of rectum Knee effusion, left Rectal cancer Tubular adenoma of colon Ulcerative colitis Family History Paternal Aunt No problems noted. Surgical History Hx of colonoscopy Social History Household Members: Family and Other Household Members Other:: sister Housing: House Are you a primary career technology teacher to a significant other at home: No Do you presently have visiting nurse or other home services: No Alcohol intake: current Alcohol intake frequency: a few times a month Alcohol type: hard liquor Patient Tobacco Use Status: Former Tobacco user Tobacco use type: Cigarette Smoked in Last 30 Days: No Second Hand Smoke Exposure: No Use of substances other than those prescribed or required for medical reasons: No Advance Directives: No service: Yes Current occupational status: retired [employer] Allergies Allergy/AdvReac Type Severity Reaction Status Date / Time No Known Allergies Allergy Verified 11/23/21 12:56 [No Known Allergies*] Active Medications: Current Medications Acetaminophen (Acetaminophen 325 Mg Tablet) 650 mg PO Q6H PRN PRN Reason: Pain, Mild (Pain Scale 1-3) Enoxaparin Sodium (Enoxaparin Sodium 40 Mg/0.4 Ml Syringe) 40 mg SUBCUT Q24H [facility] Sodium Chloride (Ns) 1,000 mls @ 100 mls/hr IVCONT .Q10H [facility] Pharmacy Consult (Consult Rx Perform Med Rec) 1 each MISCELLANE ONCE PRN PRN Reason: Consult order Sodium Chloride (0.9 % Sodium Chloride Flush 3 Ml Syringe) 3 ml IVFLUSH QSHIFT [facility] Home Medications Medication Instructions Recorded Confirmed Last Taken Type losartan 50 mg tablet 50 mg PO DAILY 07/07/20 12/24/22 12/24/22 History loratadine 10 mg tablet 10 mg PO DAILY 12/24/22 12/24/22 12/24/22 History Physical Exam Vital Signs and Narrative: Vital Signs: Last Vital Signs Temp 98.3 F 12/24/22 14:28 Pulse 82 12/24/22 14:33 Resp 16 12/24/22 14:28 BP 128/65 12/24/22 14:33 Pulse Ox 95 12/24/22 14:28 O2 Del Method Room Air 12/24/22 14:28 BMI result Body Mass Index 24.5 Constitutional - Awake and Alert, No apparent distress Eyes - PERRLA, EOMI Cardiovascular - S1S2, RRR, No edema Respiratory - Normal lung expansion, Normal respiratory effort, No respiratory distress, CTA bilaterally Gastrointestinal - NT / ND; +BS; No rebound or guarding Extremities - no calf tenderness bilaterally, no swelling Skin - Warm/Dry Neurological - Alert & oriented x3, CN II-XII in tact, 5/5 strength BUE and BLE Psychological - Appropriate affect Results Labs 12/24/22 10:21 12/24/22 14:45 Labs: Laboratory Results - last 24 hr 12/24/22 12/24/22 12/24/22 10:21 10:21 10:21 MCV 96.0 MCH 32.4 MCHC 33.7 RDW 12.9 Plt Count 165 MPV 9.7 Immature Gran % (Auto) 0.3 Neut % (Auto) 66.5 Lymph % (Auto) 22.2 [place] % (Auto) 8.4 Eos % (Auto) 1.6 Baso % (Auto) 1.0 Lymph # (Auto) 0.9 L [place] # (Auto) 0.3 Eos # (Auto) 0.1 Baso # (Auto) 0.0 Abs Immat Gran (auto) 0.01 Absolute Neuts (auto) 2.6 Absolute Nucleated RBC 0.000 Nucleated RBC % (auto) 0.0 PT 11.1 INR 1.0 APTT 25.7 L Anion Gap 11 L Estim Creat Clear Calc 28.3 Estimated GFR 35 Random Glucose 110 Calcium 8.3 L D Magnesium 1.8 Total Bilirubin 0.9 AST 10 ALT 7 Alkaline Phosphatase 57 Total Creatine Kinase 72 Troponin I High Sens B-Natriuretic Peptide Total Protein 5.9 L Albumin 3.5 Lipase 43 COVID-19 (MATTHEW) COVID-19 Clin Com 12/24/22 12/24/22 12/24/22 10:21 10:21 14:40 MCV MCH MCHC RDW Plt Count MPV Immature Gran % (Auto) Neut % (Auto) Lymph % (Auto) [place] % (Auto) Eos % (Auto) Baso % (Auto) Lymph # (Auto) [place] # (Auto) Eos # (Auto) Baso # (Auto) Abs Immat Gran (auto) Absolute Neuts (auto) Absolute Nucleated RBC Nucleated RBC % (auto) PT INR APTT Anion Gap Estim Creat Clear Calc Estimated GFR Random Glucose Calcium Magnesium Total Bilirubin AST ALT Alkaline Phosphatase Total Creatine Kinase Troponin I High Sens < 2.7 B-Natriuretic Peptide 36 Total Protein Albumin Lipase COVID-19 (MATTHEW) Negative COVID-19 Clin Com See Note 12/24/22 12/24/22 14:45 14:45 MCV MCH MCHC RDW Plt Count MPV Immature Gran % (Auto) Neut % (Auto) Lymph % (Auto) [place] % (Auto) Eos % (Auto) Baso % (Auto) Lymph # (Auto) [place] # (Auto) Eos # (Auto) Baso # (Auto) Abs Immat Gran (auto) Absolute Neuts (auto) Absolute Nucleated RBC Nucleated RBC % (auto) PT INR APTT Anion Gap 10 L Estim Creat Clear Calc 29.5 Estimated GFR 37 Random Glucose 125 H Calcium 8.5 Magnesium Total Bilirubin 1.0 AST 13 ALT 7 Alkaline Phosphatase 65 Total Creatine Kinase Troponin I High Sens < 2.7 B-Natriuretic Peptide Total Protein 6.5 Albumin 3.8 Lipase COVID-19 (MATTHEW) COVID-19 Clin Com Imaging Radiologist's Impressions: Impressions Chest X-Ray 12/24/22 10:06 IMPRESSION: Small right pleural effusion. Hazy opacity at the periphery of the right midlung is nonspecific. This could represent atelectasis or pneumonia. Head CT 12/24/22 10:34 IMPRESSION: There are a few scattered chronic small vessel ischemic changes within the periventricular white matter. Otherwise unremarkable examination. No evidence of acute territorial infarct or hemorrhage. Assessment and Plan (1) Near syncope: Status: Acute (2) Orthostatic hypotension: Status: Acute (3) PAC (premature atrial contraction): Status: Acute Plan 87-year-old male with history of hypertension, ulcerative colitis, and history of rectal cancer s/p resection to be observed for near syncope with persistent orthostatic hypotension. #Near syncope- related to Orthostatic hypotension -persisted despite 1L IV NS -Continue IVF -Repeat orthostatics am -Monitor on telemetry #Frequent PAC's -less likely to be related to near syncope -outpt follow up for holter monitor #Elevated creatinine -Creat on arrival 1.84, baseline 1.44 -Due to poor oral fluid intake -Continue IVF -avoid nephrotoxins -Follow BMP #HTN -hold losartan, continue amlodipine DVT prophylaxis-Lovenox Full code Time Spent With Patient Time: Total time managing care of this patient today ____ minutes. Quality Stroke Does the patient have a stroke diagnosis?: No VTE Prior VTE?: No VTE Risk Level:: Medical - moderate - high VTE Device Contraindication: Treatment Not Indicated VTE Drug Contraindication: N/A - Med Ordered
[2022-12-24] MEDS: 0.9 % Sodium Chloride 1,000 ML 100 ML IVCONT (16:24)
[2022-12-24] MEDS: Enoxaparin Sodium 30 MG/0.3 ML SYRINGE SUBCUT (16:31)
--- NOTE | 2022-12-24 16:59 | PC.NURSE ---
called to give report at 1700. No answer.
--- NOTE | 2022-12-24 17:04 | PC.NURSE ---
report given to MIKAL Bynum [facility] [place]
[2022-12-25] VITALS (9 sets, daily range): BP systolic 116–155; BP diastolic 55–82; PULSE 63–87; RESP 15–20; TEMP 36.4–36.7; O2SAT 92–95
[2022-12-25] MEDS: 0.9 % Sodium Chloride 1,000 ML 100 ML IVCONT ×2 (03:21→13:06)
--- NOTE | 2022-12-25 06:23 | PC.NURSE ---
Addendum entered by Mary Jarquin RN 12/25/22 06:36: asked MD for mitchell Cath no new orders at this time Original Note: pt doesnt feel the urge to void unable to void when attempting to pee in urinal. Bladder scan showed >999. made aware, new order for straight cath, Straight cathed for 700ml. post void residual remains greater than 999. pt will attempt to void again will pass to next shift
[2022-12-25 07:20] LABS: MANUAL DIFF FLAG NO
[2022-12-25 07:23] LABS: Basophils Percent Auto 0.6 % (0-2); Eosinophils Absolute Auto 0.1 X10*3/uL (0.0-0.4); Eosinophils Percent Auto 2.6 % (0-4); Hematocrit 38.6 % (42.0-52.0); Hemoglobin 12.7 g/dl (14.0-18.0); Imm Gran Abs Auto 0.01 X10*3/uL (0.00-0.03); Imm Gran Pct Auto 0.2 % (0.0-0.4); Lymphocytes Absolute Auto 1.1 X10*3/uL (1.2-4.9); Lymphocytes Percent Auto 22.3 % (20-40); Mean Corpuscular HGB Conc 32.9 g/dl (31.0-36.0); Mean Corpuscular Hemoglobin 31.9 pg (27.0-33.0); Mean Platelet Volume 10.2 fL (9.4-12.4); Monocytes Absolute Auto 0.4 X10*3/uL (0.1-1.2); Monocytes Percent Auto 8.8 % (2-11); Neutrophils Absolute Auto 3.3 x10*3/uL (2.0-8.3); Neutrophils Percent Auto 65.5 % (45-73); Platelet Count 161 X10*3/uL (160-400); Red Blood Count 3.98 X10*6/uL (4.60-5.80); Red Cell Distribution Width 12.9 % (11.0-16.0)
[2022-12-25 07:45] LABS: Anion Gap 8 (12-20); Blood Urea Nitrogen 23 mg/dL (9-16); Calcium 7.9 mg/dL (8.4-10.2); Carbon Dioxide 21 mmol/L (22-29); Chloride 112 mmol/L (96-108); Creatinine Clr Calc Pharmacy 38.9; Estimated Glomerular Filt Rate 51; Glucose Random 103 mg/dL (60-115); Sodium 137 mmol/L (135-145)
[2022-12-25] MEDS: amLODIPine Besylate 5 MG TABLET PO (08:34)
[2022-12-25] MEDS: 0.9 % Sodium Chloride Flush 3 ML SYRINGE IVFLUSH (08:35)
[2022-12-25] MEDS: Loratadine 10 MG TABLET PO (08:35)
--- NOTE | 2022-12-25 11:07 | PM.DS ---
DS: Providers Provider Date of Service: 12/27/22 Date of admission: 12/24/22 15:42 Primary care physician: Abilio Howe III, MD DS: Diagnosis Discharge Diagnosis (1) Near syncope: Status: Resolved (2) Orthostatic hypotension: Status: Resolved (3) PAC (premature atrial contraction): Status: Resolved DS: Summary Hospital Course Hospital Course: Chief Complaint: Dizziness 87-year-old male with history of hypertension, ulcerative colitis, and history of rectal cancer s/p resection presents to the ED from home for evaluation of near syncope.? He reports this morning he woke up and when he stood he felt very lightheaded like he was going to pass out but did not actually syncopize.? He denies history of similar episodes.? He does state that he does not drink much water at baseline.? Denies any recent illness.? No fevers, chills, abdominal pain, nausea, vomiting, urinary symptoms, diarrhea, palpitations, vertigo, or chest pain.? On arrival, vitals stable though slightly tachycardic to 100.? Following IV fluid administration, Orthostatic vital signs were performed and remained positive.? Patient states he stood up to ambulate and felt immediately lightheaded and had to sit down.? He is leukopenic the 3.8 with mild normocytic anemia of 13.7/42.6%.? Creatinine 1.77, baseline around 1.44.? BUN 31.? Electrolyte levels normal.? Total CK 72.? BNP 36.? Troponin undetectable.? COVID-[address] negative for any acute intracranial abnormality which shows few scattered chronic small vessel ischemic changes within the periventricular white matter.? Chest x-ray shows small right pleural effusion with hazy opacity at the periphery of the right midlung which is nonspecific possibly event sales representative of atelectasis versus pneumonia.? He denies feeling unwell or any cough or shortness of breath.? EKG shows sinus rhythm with PACs, rate [address]/T-wave abnormality.? On traffic monitor specialist he is noted to have frequent PACs.? In the ED, received 2 L IV NS and ondansetron. He does endorse drinking a coffee alcohol beverage nightly, but no illicit drug use and is a former smoker. Hospital course: Patient presented with dizziness and passing out and found to have orthostatic hypotension and dehydration as evident by Acute kindney injury, ECG showed PACs. During hospitalization, he had difficulty voidig and a mitchell catheter had to be inserted after failing multiple voiding trial. For orthostatic hypotension, he was hydrated with improvement. Acute renal failure has improved. PAC's not belived to be cause of syncope, adding low dose metoprolol and discontinuing Norvasc with good response as he was able to participate with PT with recommendations for home PT. Developed Urinary retention-- To keep mitchell in and follow up with Dr. Reeder Time Spent with Patient Time attestation: Total time managing care of this patient today ____ minutes. Discharge coordination time: Greater than 30 minutes Quality: Safe Use of Opioids Does Pt have an Active Cancer Diagnosis on the Problem List?: No Quality: Stroke Does the patient have a stroke diagnosis?: No Physical Exam Vital Signs: Vital Signs: Last Vital Signs Temp 97.6 F 12/25/22 07:26 Pulse 78 12/25/22 07:26 Resp 20 12/25/22 07:26 BP 140/70 H 12/25/22 07:26 Pulse Ox 95 12/25/22 07:26 O2 Del Method Room Air 12/25/22 07:26 BMI result Body Mass Index 24.5 DS: Data Data Completed and Pending Completed studies during hospitalization [Text1]: Procedures Drainage of Right Knee Joint, Percutaneous Approach, Diagnostic (04/29/20) Labs on day of discharge: Laboratory Results - last 24 hr 12/24/22 12/24/22 12/24/22 10:21 14:40 14:45 WBC RBC Hgb Hct MCV MCH MCHC RDW Plt Count MPV Immature Gran % (Auto) Neut % (Auto) Lymph % (Auto) [place] % (Auto) Eos % (Auto) Baso % (Auto) Lymph # (Auto) [place] # (Auto) Eos # (Auto) Baso # (Auto) Abs Immat Gran (auto) Absolute Neuts (auto) Absolute Nucleated RBC Nucleated RBC % (auto) Sodium 139 Potassium 4.3 Chloride 108 Carbon Dioxide 25 Anion Gap 10 L BUN 31 H Creatinine 1.77 H Estim Creat Clear Calc 29.5 Estimated GFR 37 Random Glucose 125 H Calcium 8.5 Magnesium 1.8 Total Bilirubin 1.0 AST 13 ALT 7 Alkaline Phosphatase 65 Total Creatine Kinase 72 Troponin I High Sens B-Natriuretic Peptide 36 Total Protein 6.5 Albumin 3.8 12/24/22 12/25/22 12/25/22 14:45 06:55 06:55 WBC 5.0 RBC 3.98 L Hgb 12.7 L Hct 38.6 L MCV 97.0 MCH 31.9 MCHC 32.9 RDW 12.9 Plt Count 161 MPV 10.2 Immature Gran % (Auto) 0.2 Neut % (Auto) 65.5 Lymph % (Auto) 22.3 [place] % (Auto) 8.8 Eos % (Auto) 2.6 Baso % (Auto) 0.6 Lymph # (Auto) 1.1 L [place] # (Auto) 0.4 Eos # (Auto) 0.1 Baso # (Auto) 0.0 Abs Immat Gran (auto) 0.01 Absolute Neuts (auto) 3.3 Absolute Nucleated RBC 0.000 Nucleated RBC % (auto) 0.0 Sodium 137 Potassium 4.0 Chloride 112 H Carbon Dioxide 21 L Anion Gap 8 L BUN 23 H Creatinine 1.34 Estim Creat Clear Calc 38.9 Estimated GFR 51 Random Glucose 103 Calcium 7.9 L D Magnesium Total Bilirubin AST ALT Alkaline Phosphatase Total Creatine Kinase Troponin I High Sens < 2.7 B-Natriuretic Peptide Total Protein Albumin Discharge Plan Discharge Anticipated Discharge Date/Time: 12/27/22 11:48 Patient Disposition: Home Health Service Discharge Diagnosis: orthostatic HypOtension Referrals: [facility] [Outside] - 1 Week Abilio Howe III, MD [Primary Care Provider] - 1 Week Discharge Medications: New metoprolol succinate [Toprol XL] 25 mg tablet extended release 24 hr 25 mg PO DAILY Qty: 30 0RF alfuzosin [Uroxatral] 10 mg tablet extended release 24 hr 10 mg PO DAILY Qty: 30 0RF Rx Instructions: administer after the same meal each day Continued losartan 50 mg tablet 50 mg PO DAILY Discontinued amlodipine [Norvasc] 5 mg tablet 5 mg PO DAILY Qty: 30 0RF loratadine 10 mg Tablet 10 mg PO DAILY Discharge Orders: Discharge Order (Routine); Ordered 12/28/22 Ordered By: Denny Rueda Diet: Advance to usual diet Activity on Discharge: As tolerated Stand Alone Forms: Patient Portal Discharge page Care Plan Goals: recovery from orthostatic hypotension Health Concerns: orthostatic hypotension urinary retention Plan of Treatment: stay hydrated follow up with uroligist Dr. reeder for voidin trial Assessment: as abve Discharge Date/Time: 12/28/22 16:48
--- NOTE | 2022-12-25 11:53 | P.PNIM_ITS ---
Subjective Subjective Date of Service: 12/25/22 Interval History: f/u syncope, orthosatic hypotension, feels better Physical Exam Vital Signs: Vital Signs: Last Vital Signs Temp 97.7 F 12/25/22 11:35 Pulse 76 12/25/22 11:40 Resp 20 12/25/22 11:35 BP 144/70 H 12/25/22 11:40 Pulse Ox 94 12/25/22 11:35 O2 Del Method Room Air 12/25/22 11:35 BMI result Body Mass Index 24.5 Const: Other: General: AO X 3, no acute distress Resp: CTA bilateral CVS: S1,S2,RRR GI: +BS, NT, no distention Skin: No rash Neuro: motor grossly intact Psych: appropriate affect Objective Data Active Medications Acetaminophen (Acetaminophen 325 Mg Tablet) 650 mg PO Q6H PRN PRN Reason: Pain, Mild (Pain Scale 1-3) Amlodipine Besylate (Amlodipine Besylate 5 Mg Tablet) 5 mg PO DAILY [facility]; Protocol Last Admin: 12/25/22 08:34 Dose: 5 mg Documented By: CHASE Docusate Sodium (Docusate Sodium 100 Mg Capsule) 100 mg PO DAILY PRN PRN Reason: Constipation Enoxaparin Sodium (Enoxaparin Sodium 40 Mg/0.4 Ml Syringe) 40 mg SUBCUT Q24H [facility] Sodium Chloride (Ns) 1,000 mls @ 100 mls/hr IVCONT .Q10H [facility] Last Admin: 12/25/22 03:21 Dose: 100 mls/hr Documented By: CARO Loratadine (Loratadine 10 Mg Tablet) 10 mg PO DAILY [facility] Last Admin: 12/25/22 08:35 Dose: 10 mg Documented By: CHASE Ondansetron HCl (Ondansetron Hcl 4 Mg/2 Ml Vial) 4 mg IVPUSH Q8H PRN PRN Reason: Nausea and Vomiting Pharmacy Consult (Consult Rx Perform Med Rec) 1 each MISCELLANE ONCE PRN PRN Reason: Consult order Sodium Chloride (0.9 % Sodium Chloride Flush 3 Ml Syringe) 3 ml IVFLUSH QSHIFT [facility] Last Admin: 12/25/22 08:35 Dose: 3 ml Documented By: CHASE Labs 12/25/22 06:55 12/25/22 06:55 Labs: Laboratory Results - last 24 hr 12/24/22 12/24/22 12/24/22 10:21 14:40 14:45 MCV MCH MCHC RDW Plt Count MPV Immature Gran % (Auto) Neut % (Auto) Lymph % (Auto) [place] % (Auto) Eos % (Auto) Baso % (Auto) Lymph # (Auto) [place] # (Auto) Eos # (Auto) Baso # (Auto) Abs Immat Gran (auto) Absolute Neuts (auto) Absolute Nucleated RBC Nucleated RBC % (auto) Anion Gap 10 L Estim Creat Clear Calc 29.5 Estimated GFR 37 Random Glucose 125 H Calcium 8.5 Magnesium 1.8 Total Bilirubin 1.0 AST 13 ALT 7 Alkaline Phosphatase 65 Total Creatine Kinase 72 Troponin I High Sens B-Natriuretic Peptide 36 Total Protein 6.5 Albumin 3.8 12/24/22 12/25/22 12/25/22 14:45 06:55 06:55 MCV 97.0 MCH 31.9 MCHC 32.9 RDW 12.9 Plt Count 161 MPV 10.2 Immature Gran % (Auto) 0.2 Neut % (Auto) 65.5 Lymph % (Auto) 22.3 [place] % (Auto) 8.8 Eos % (Auto) 2.6 Baso % (Auto) 0.6 Lymph # (Auto) 1.1 L [place] # (Auto) 0.4 Eos # (Auto) 0.1 Baso # (Auto) 0.0 Abs Immat Gran (auto) 0.01 Absolute Neuts (auto) 3.3 Absolute Nucleated RBC 0.000 Nucleated RBC % (auto) 0.0 Anion Gap 8 L Estim Creat Clear Calc 38.9 Estimated GFR 51 Random Glucose 103 Calcium 7.9 L D Magnesium Total Bilirubin AST ALT Alkaline Phosphatase Total Creatine Kinase Troponin I High Sens < 2.7 B-Natriuretic Peptide Total Protein Albumin Assessment and Plan (1) Syncope: Status: Acute Plan #Near syncope- related to Orthostatic hypotension probably due to dehydration, hydrated with IVF, repeat orthostatic hypotension..., No arrythmia on tele, repeat Orthostatic #Frequent PAC's -less likely to be related to near syncope -outpt follow up for holter monitor #Elevated creatinine, HORACIO on CKD 3, Cr 1.34 down from 1.84 continue IVF #HTN -hold losartan, continue amlodipine #Urinary retention--mitchell if persists need for inpt: syncope, horacio, dehydration need ivf Time Spent With Patient Time: Total time managing care of this patient today ____ minutes. Quality Stroke Does the patient have a stroke diagnosis?: No VTE Prior VTE?: No VTE Risk Level:: Medical - moderate - high VTE Device Contraindication: Treatment Not Indicated VTE Drug Contraindication: N/A - Med Ordered
--- NOTE | 2022-12-25 12:33 | MHC.CM.PN ---
EMILY 12/25. Pt on observation for near syncope, orthostatic hypotension. Pt lives with his son, uses a cane, no services. D/C plan to return home with pts son. Pts son can transport him after 5pm due to work, otherwise he will need assistance with transportation. No HCP, pt educated and offered assistance, but declined at this time. PCP: Abilio Fernandez vax: x 3
--- NOTE | 2022-12-25 12:40 | PC.NURSE ---
telephone order to hold off on inserting mitchell - bladder scan read over 900ml s/p void, patient voided 150ml. Per telephone order str cath patient now
[2022-12-25 13:16] LABS: Appearance Urine Clear; Color Urine Yellow; Glucose Urine UA Negative (Negative); Leukocyte Esterase Urine Negative (Negative); Nitrite Urine Negative (Negative); PH 5.5 (5.0-9.0); Specific Gravity - Urine 1.015 (1.005-1.025); Urine Blood Negative (Negative); Urine Ketones Negative (Negative); Urine Protein Trace mg/dL (Neg-Trace)
--- NOTE | 2022-12-25 15:42 | PC.NURSE ---
Per provider's order patient was str. cath at 1200 - total output 1900ml dark yellow urine - sample sent to lab, patient tolerated procedure well
[2022-12-25] MEDS: Enoxaparin Sodium 40 MG/0.4 ML SYRINGE SUBCUT (17:28)
[2022-12-26] VITALS (8 sets, daily range): BP systolic 147–174; BP diastolic 53–94; PULSE 65–97; RESP 20; TEMP 36.4–36.9; O2SAT 93–96
[2022-12-26] MEDS: 0.9 % Sodium Chloride 1,000 ML 100 ML IVCONT (00:04)
--- NOTE | 2022-12-26 05:20 | PC.NURSE ---
PT UNABLE TO VOID,BLADDER SCAN FOR 999,STR CATHED FOR 750CC,RADHIKA WELL.
[2022-12-26] MEDS: amLODIPine Besylate 5 MG TABLET PO (07:56)
[2022-12-26] MEDS: Loratadine 10 MG TABLET PO (07:56)
[2022-12-26] MEDS: 0.9 % Sodium Chloride Flush 3 ML SYRINGE IVFLUSH ×2 (07:57→18:18)
--- NOTE | 2022-12-26 09:05 | P.PNIM_ITS ---
Subjective Subjective Date of Service: 12/26/22 Interval History: f/u syncope, orthosatic hypotension, better but has been having urinary retention Physical Exam Vital Signs: Vital Signs: Last Vital Signs Temp 98.5 F 12/26/22 07:14 Pulse 92 12/26/22 07:14 Resp 20 12/26/22 07:14 BP 147/80 H 12/26/22 07:14 Pulse Ox 94 12/26/22 07:14 O2 Del Method Room Air 12/26/22 07:14 BMI result Body Mass Index 24.5 Const: Other: General: AO X 3, no acute distress Resp: CTA bilateral CVS: S1,S2,RRR GI: +BS, NT, no distention Skin: No rash Neuro: motor grossly intact Psych: appropriate affect Objective Data Active Medications Acetaminophen (Acetaminophen 325 Mg Tablet) 650 mg PO Q6H PRN PRN Reason: Pain, Mild (Pain Scale 1-3) Amlodipine Besylate (Amlodipine Besylate 5 Mg Tablet) 5 mg PO DAILY [facility]; Protocol Last Admin: 12/26/22 07:56 Dose: 5 mg Documented By: RAYRAY Docusate Sodium (Docusate Sodium 100 Mg Capsule) 100 mg PO DAILY PRN PRN Reason: Constipation Enoxaparin Sodium (Enoxaparin Sodium 40 Mg/0.4 Ml Syringe) 40 mg SUBCUT Q24H [facility] Last Admin: 12/25/22 17:28 Dose: 40 mg Documented By: CHASE Sodium Chloride (Ns) 1,000 mls @ 100 mls/hr IVCONT .Q10H [facility] Last Admin: 12/26/22 00:04 Dose: 100 mls/hr Documented By: CORNELIA Loratadine (Loratadine 10 Mg Tablet) 10 mg PO DAILY [facility] Last Admin: 12/26/22 07:56 Dose: 10 mg Documented By: RAYRAY Ondansetron HCl (Ondansetron Hcl 4 Mg/2 Ml Vial) 4 mg IVPUSH Q8H PRN PRN Reason: Nausea and Vomiting Pharmacy Consult (Consult Rx Perform Med Rec) 1 each MISCELLANE ONCE PRN PRN Reason: Consult order Sodium Chloride (0.9 % Sodium Chloride Flush 3 Ml Syringe) 3 ml IVFLUSH QSHIFT [facility] Last Admin: 12/26/22 07:57 Dose: 3 ml Documented By: RAYRAY Labs 12/25/22 06:55 12/25/22 06:55 Labs: Laboratory Results - last 24 hr 12/25/22 13:00 Urine Color Yellow Urine Appearance Clear Urine pH 5.5 Ur Specific [place] 1.015 Urine Protein Trace Urine Glucose (UA) Negative Urine Ketones Negative Urine Blood Negative Urine Nitrite Negative Ur Leukocyte Esterase Negative Assessment and Plan (1) Syncope: Status: Acute Plan #Near syncope- related to Orthostatic hypotension probably due to dehydration, hydrated with IVF, repeat orthostatic hypotension..., No arrythmia on tele, repeat Orthostatic #Frequent PAC's -less likely to be related to near syncope -outpt follow up for holter monitor #Elevated creatinine, SHANNAN on CKD 3, Cr 1.34 down from 1.84 continue IVF #HTN -resume losartan, continue amlodipine #Urinary retention--mitchell if persists, need for inpt: syncope, shannan, dehydration need ivf Time Spent With Patient Time: Total time managing care of this patient today ____ minutes. Quality Stroke Does the patient have a stroke diagnosis?: No VTE Prior VTE?: No VTE Risk Level:: Medical - moderate - high VTE Device Contraindication: Treatment Not Indicated VTE Drug Contraindication: N/A - Med Ordered
[2022-12-26] MEDS: Losartan Potassium 50 MG TABLET PO (09:41)
--- NOTE | 2022-12-26 17:26 | PC.NURSE ---
patient's bladder scan showed a total of over 999ml of urine. MD notified and a mitchell cath was ordered. A 16FR indwelling cath was placed at 16:45. Pt tolerated procedure well. pt has already voided 1900mL of clear yellow urine and denies any pelvic pain/dysuria. will continue to monitor.
[2022-12-26] MEDS: Enoxaparin Sodium 40 MG/0.4 ML SYRINGE SUBCUT (18:17)
[2022-12-27] VITALS (8 sets, daily range): BP systolic 133–164; BP diastolic 65–84; PULSE 79–96; RESP 17–20; TEMP 36.1–37; O2SAT 95–97
[2022-12-27] MEDS: 0.9 % Sodium Chloride Flush 3 ML SYRINGE IVFLUSH (00:15)
[2022-12-27] MEDS: Losartan Potassium 50 MG TABLET PO (08:25)
[2022-12-27] MEDS: amLODIPine Besylate 5 MG TABLET PO (08:25)
[2022-12-27] MEDS: Loratadine 10 MG TABLET PO (08:25)
--- NOTE | 2022-12-27 10:16 | HO.PM.IMPN ---
Subjective Subjective Date of Service: 12/27/22 Interval History: f/u syncope, orthosatic hypOtension, now has mitchell for urinary retention Physical Exam Vital Signs: Vital Signs: Last Vital Signs Temp 97.1 F 12/27/22 07:43 Pulse 89 12/27/22 08:08 Resp 20 12/27/22 07:43 BP 151/83 H 12/27/22 08:08 Pulse Ox 96 12/27/22 07:43 O2 Del Method Room Air 12/27/22 07:43 BMI result Body Mass Index 24.5 Const: Other: General: AO X 3, no acute distress Resp: CTA bilateral CVS: S1,S2,RRR GI: +BS, NT, no distention Skin: No rash Neuro: motor grossly intact Psych: appropriate affect Objective Data Active Medications Acetaminophen (Acetaminophen 325 Mg Tablet) 650 mg PO Q6H PRN PRN Reason: Pain, Mild (Pain Scale 1-3) Amlodipine Besylate (Amlodipine Besylate 5 Mg Tablet) 5 mg PO DAILY [facility]; Protocol Last Admin: 12/27/22 08:25 Dose: 5 mg Documented By: ASHLEY Docusate Sodium (Docusate Sodium 100 Mg Capsule) 100 mg PO DAILY PRN PRN Reason: Constipation Enoxaparin Sodium (Enoxaparin Sodium 40 Mg/0.4 Ml Syringe) 40 mg SUBCUT Q24H [facility] Last Admin: 12/26/22 18:17 Dose: 40 mg Documented By: RAYRAY Sodium Chloride (Ns) 1,000 mls @ 100 mls/hr IVCONT .Q10H [facility] Last Infusion: 12/27/22 09:37 Dose: 0 mls/hr Documented By: ASHLEY Loratadine (Loratadine 10 Mg Tablet) 10 mg PO DAILY [facility] Last Admin: 12/27/22 08:25 Dose: 10 mg Documented By: ASHLEY Losartan Potassium (Losartan Potassium 50 Mg Tablet) 50 mg PO DAILY [facility]; Protocol Last Admin: 12/27/22 08:25 Dose: 50 mg Documented By: ASHLEY Ondansetron HCl (Ondansetron Hcl 4 Mg/2 Ml Vial) 4 mg IVPUSH Q8H PRN PRN Reason: Nausea and Vomiting Pharmacy Consult (Consult Rx Perform Med Rec) 1 each MISCELLANE ONCE PRN PRN Reason: Consult order Sodium Chloride (0.9 % Sodium Chloride Flush 3 Ml Syringe) 3 ml IVFLUSH QSHIFT [facility] Last Admin: 12/27/22 06:57 Dose: Not Given Documented By: ASHLEY Non-Admin Reason: See Note Labs 12/25/22 06:55 12/25/22 06:55 Assessment and Plan (1) Syncope: Status: Acute Plan #Near syncope- related to Orthostatic hypotension probably due to dehydration, hydrated with IVF, repeat orthostatic hypotension..., No arrythmia on tele, repeat Orthostatic #Frequent PAC's -less likely to be related to near syncope -outpt follow up for holter monitor #Elevated creatinine, HORACIO on CKD 3, Cr 1.34 down from 1.84 continue IVF #HTN -resume losartan, continue amlodipine #Urinary retention--has mitchell, urology consult need for inpt: syncope, horacio, dehydration need ivf Time Spent With Patient Time: Total time managing care of this patient today ____ minutes. Quality Stroke Does the patient have a stroke diagnosis?: No VTE Prior VTE?: No VTE Risk Level:: Medical - moderate - high VTE Device Contraindication: Treatment Not Indicated VTE Drug Contraindication: N/A - Med Ordered
--- NOTE | 2022-12-27 11:41 | MHC.CM.PN ---
Patient is not yet medically cleared for dc (new F/C r/t Urinary Retention); home is the goal and CM will follow.
--- NOTE | 2022-12-27 14:50 | P.CNUR_ITS ---
History of Present Illness Consult details Consult date: 12/27/22 Narrative: CC: Urinary retention 87-year-old male admitted hospital with near syncopal episode. Lightheaded. Prior history hypertension, ulcerative colitis, bowel resection. Bordered no fever, chills, abdominal pain. Initial creatinine 1.7 from baseline 1.4 electrolytes normal Found to have orthostatic hypotension Gradual improvement On 3rd hospital day persistent urinary retention Wesley catheter placed for reported 1900 cc volume Catheter will need to stay minimum 2 weeks Should start alfuzosin 10mg which has lost hypotensive side effect profile May follow-up in office Review of Systems Constitutional: Constitutional: Reports as per HPI and Reports no additional constitutional complaints Cardiovascular: Cardiovascular: Reports as per HPI and Reports no additional cardiovascular complaints Respiratory: Respiratory: Reports as per HPI and Reports no additional respiratory complaints Gastrointestinal: Gastrointestinal: Reports as per HPI and Reports no additional gastrointestinal complaints Genitourinary: Genitourinary: Reports as per HPI Musculoskeletal: Musculoskeletal: Reports no additional musculoskeletal complaints and Reports as per HPI Neurologic: Reports system reviewed and no additional complaints, except as documented and Reports as per HPI PMFSH Past Medical History Medical History Arthritis Colon polyp HTN (hypertension) Hx of malignant neoplasm of rectum Knee effusion, left Rectal cancer Tubular adenoma of colon Ulcerative colitis Family History Family History Paternal Aunt No problems noted. Surgical History Surgical History Hx of colonoscopy Social History Social History Household Members: Family and Other Household Members Other:: sister Housing: House Are you a primary rn homecare to a significant other at home: No Do you presently have visiting nurse or other home services: No Alcohol intake: current Alcohol intake frequency: a few times a month Alcohol type: hard liquor Patient Tobacco Use Status: Former Tobacco user Quit Date: 2002 Tobacco use type: Cigarette Second Hand Smoke Exposure: No service: No Current occupational status: retired Meds Allergies Allergy/AdvReac Type Severity Reaction Status Date / Time No Known Allergies Allergy Verified 11/23/21 12:56 [No Known Allergies*] Active Medications: Current Medications Acetaminophen (Acetaminophen 325 Mg Tablet) 650 mg PO Q6H PRN PRN Reason: Pain, Mild (Pain Scale 1-3) Amlodipine Besylate (Amlodipine Besylate 5 Mg Tablet) 5 mg PO DAILY [facility]; Protocol Last Admin: 12/27/22 08:25 Dose: 5 mg Docusate Sodium (Docusate Sodium 100 Mg Capsule) 100 mg PO DAILY PRN PRN Reason: Constipation Enoxaparin Sodium (Enoxaparin Sodium 40 Mg/0.4 Ml Syringe) 40 mg SUBCUT Q24H [facility] Last Admin: 12/26/22 18:17 Dose: 40 mg Sodium Chloride (Ns) 1,000 mls @ 100 mls/hr IVCONT .Q10H [facility] Last Infusion: 12/27/22 09:37 Dose: Infused Loratadine (Loratadine 10 Mg Tablet) 10 mg PO DAILY [facility] Last Admin: 12/27/22 08:25 Dose: 10 mg Losartan Potassium (Losartan Potassium 50 Mg Tablet) 50 mg PO DAILY [facility]; Protocol Last Admin: 12/27/22 08:25 Dose: 50 mg Ondansetron HCl (Ondansetron Hcl 4 Mg/2 Ml Vial) 4 mg IVPUSH Q8H PRN PRN Reason: Nausea and Vomiting Pharmacy Consult (Consult Rx Perform Med Rec) 1 each MISCELLANE ONCE PRN PRN Reason: Consult order Sodium Chloride (0.9 % Sodium Chloride Flush 3 Ml Syringe) 3 ml IVFLUSH QSHIFT [facility] Last Admin: 12/27/22 13:28 Dose: Not Given Home Medications Medication Instructions Recorded Confirmed Last Taken Type losartan 50 mg tablet 50 mg PO DAILY 07/07/20 12/24/22 12/24/22 History loratadine 10 mg tablet 10 mg PO DAILY 12/24/22 12/24/22 12/24/22 History Physical Exam Vital Signs: Vital Signs: Last Vital Signs Temp 96.9 F 12/27/22 11:26 Pulse 92 12/27/22 11:26 Resp 20 12/27/22 11:26 BP 144/68 H 12/27/22 11:26 Pulse Ox 96 12/27/22 11:26 O2 Del Method Room Air 12/27/22 11:26 BMI result Body Mass Index 24.5 Const: General: cooperative, healthy appearing, comfortable and no acute distress Orientation/consciousness: patient oriented x3 HEENT: Face and sinus: Yes normal facial exam Mouth: moist mucous membranes Neck: Neck: Yes normal visual inspection, Yes full ROM and Yes trachea midline Chest: Chest palpation & inspection: normal inspection of the chest Resp: Effort & Inspection: normal respiratory effort, able to speak in complete sentences and no respiratory distress GI: Inspection: Yes normal to inspection Back/Spine/Pelvis: Cervical Spine: normal cervical lordosis Thoracic/Lumbar Spine: thoracic and lumbar spine normal to inspection Skin: General skin exam: no rashes or lesions noted Neuro: General: patient oriented x3, tone normal and moves all extremities Extrem: General: Yes normal to inspection and Yes capillary refill normal Results Labs 12/25/22 06:55 12/25/22 06:55 Labs: Urine 12/25/22 Range/Units 13:00 Urine Color Yellow Urine Appearance Clear Urine pH 5.5 (5.0-9.0) Ur Specific [place] 1.015 (1.005-1.025) Urine Protein Trace (Neg-Trace) mg/dL Urine Glucose (UA) Negative (Negative) mg/dL All other labs normal. Assessment and Plan (1) Urinary retention with incomplete bladder emptying: Status: Acute Plan Catheter for 2-3 weeks Start alfuzosin 10mg qhs Time Spent With Patient Time: Total time managing care of this patient today ____ minutes. Procedures Date of Service Date of Service: 12/27/22
[2022-12-27] MEDS: Finasteride 5 MG TABLET PO (15:38)
[2022-12-27] MEDS: Enoxaparin Sodium 40 MG/0.4 ML SYRINGE SUBCUT (15:38)
[2022-12-28] VITALS: BP 132/63; PULSE 96; RESP 20; TEMP 36.6; O2SAT 94
[2022-12-28] MEDS: 0.9 % Sodium Chloride Flush 3 ML SYRINGE IVFLUSH ×2 (00:12→08:27)
[2022-12-28 03:20] VITALS: BP 139/63; PULSE 88; RESP 20; TEMP 36.6; O2SAT 96
[2022-12-28 07:45] VITALS: BP 164/82; PULSE 94; RESP 20; TEMP 37.1; O2SAT 95
--- NOTE | 2022-12-28 07:48 | MHC.CM.PN ---
Patient has been medically cleared for dc to home today, with services. A referral was made to [facility], who has been made aware of today's dc.
[2022-12-28 08:00] VITALS: BP 168/79; PULSE 99
[2022-12-28] MEDS: Finasteride 5 MG TABLET PO (08:26)
[2022-12-28] MEDS: amLODIPine Besylate 5 MG TABLET PO (08:26)
[2022-12-28] MEDS: Loratadine 10 MG TABLET PO (08:27)
[2022-12-28] MEDS: Losartan Potassium 50 MG TABLET PO (08:27)
[2022-12-28 08:28] VITALS: BP 150/87; PULSE 108
[2022-12-28 11:37] VITALS: BP 139/65; PULSE 105; RESP 20; TEMP 37; O2SAT 97
--- NOTE | 2022-12-28 11:49 | PM.DS ---
DS: Providers Provider Date of Service: 12/28/22 Date of admission: 12/24/22 15:42 Primary care physician: Abilio Howe III, MD Consults: 12/27/22 07:07 Consult to Urology Routine Consulting Provider: Kalyan Reeder Reason for consultation: urinary retention Has provider been notified: No DS: Diagnosis Discharge Diagnosis (1) Urinary retention with incomplete bladder emptying: Status: Acute (2) Near syncope: Status: Acute (3) Orthostatic hypotension: Status: Acute (4) PAC (premature atrial contraction): Status: Acute (5) Acute kidney injury: Status: Acute DS: Summary Hospital Course Hospital Course: Chief Complaint: Dizziness 87-year-old male with history of hypertension, ulcerative colitis, and history of rectal cancer s/p resection presents to the ED from home for evaluation of near syncope.? He reports this morning he woke up and when he stood he felt very lightheaded like he was going to pass out but did not actually syncopize.? He denies history of similar episodes.? He does state that he does not drink much water at baseline.? Denies any recent illness.? No fevers, chills, abdominal pain, nausea, vomiting, urinary symptoms, diarrhea, palpitations, vertigo, or chest pain.? On arrival, vitals stable though slightly tachycardic to 100.? Following IV fluid administration, Orthostatic vital signs were performed and remained positive.? Patient states he stood up to ambulate and felt immediately lightheaded and had to sit down.? He is leukopenic the 3.8 with mild normocytic anemia of 13.7/42.6%.? Creatinine 1.77, baseline around 1.44.? BUN 31.? Electrolyte levels normal.? Total CK 72.? BNP 36.? Troponin undetectable.? COVID-[address] negative for any acute intracranial abnormality which shows few scattered chronic small vessel ischemic changes within the periventricular white matter.? Chest x-ray shows small right pleural effusion with hazy opacity at the periphery of the right midlung which is nonspecific possibly dental detail representative of atelectasis versus pneumonia.? He denies feeling unwell or any cough or shortness of breath.? EKG shows sinus rhythm with PACs, rate [address]/T-wave abnormality.? On environmental monitoring specialist he is noted to have frequent PACs.? In the ED, received 2 L IV NS and ondansetron. He does endorse drinking a coffee alcohol beverage nightly, but no illicit drug use and is a former smoker. Hospital course: Patient presented with dizziness and passing out and found to have orthostatic hypotension and dehydration as evident by Acute kindney injury, ECG showed PACs. During hospitalization, he had difficulty voidig and a mitchell catheter had to be inserted after failing multiple voiding trial. For orthostatic hypotension, he was hydrated with improvement. Acute renal failure has improved. PAC's not belived to be cause of syncope, adding low dose metoprolol and discontinuing Norvasc with good response as he was able to participate with PT with recommendations for home PT. Developed Urinary retention-- To keep mitchell in and follow up with Dr. Reeder Time Spent with Patient Time attestation: Total time managing care of this patient today ____ minutes. Discharge coordination time: Greater than 30 minutes Quality: Safe Use of Opioids Does Pt have an Active Cancer Diagnosis on the Problem List?: No Quality: Stroke Does the patient have a stroke diagnosis?: No Physical Exam Vital Signs: Vital Signs: Last Vital Signs Temp 98.6 F 12/28/22 11:37 Pulse 105 H 12/28/22 11:37 Resp 20 12/28/22 11:37 BP 139/65 12/28/22 11:37 Pulse Ox 97 12/28/22 11:37 O2 Del Method Room Air 12/28/22 11:37 BMI result Body Mass Index 24.5 Const: Other: Constitutional : Awake, interactive, not in distress Neck : Normal inspection, Supple Cardiovascular : RRR, no JVP, no lower extremity edema Respiratory : good bilateral air entry, no crackles, wheezes or rhonchi Gastrointestinal: soft, lax, Normal bowel sounds, Non tender Skin : Warm, Dry Neurological : Alert & oriented x3, No focal deficit DS: Data Data Completed and Pending Completed studies during hospitalization [Text1]: Procedures Drainage of Right Knee Joint, Percutaneous Approach, Diagnostic (04/29/20) Imaging Chest x-ray: Radiologist's impression: ITS Impressions Chest X-Ray 12/24/22 10:06 IMPRESSION: Small right pleural effusion. Hazy opacity at the periphery of the right midlung is nonspecific. This could represent atelectasis or pneumonia. Head CT 12/24/22 10:34 IMPRESSION: There are a few scattered chronic small vessel ischemic changes within the periventricular white matter. Otherwise unremarkable examination. No evidence of acute territorial infarct or hemorrhage. Discharge Plan Discharge Anticipated Discharge Date/Time: 12/27/22 11:48 Patient Disposition: Home Health Service Discharge Diagnosis: orthostatic HypOtension Referrals: [facility] [Outside] - 1 Week Abilio Howe III, MD [Primary Care Provider] - 1 Week Discharge Medications: New metoprolol succinate [Toprol XL] 25 mg tablet extended release 24 hr 25 mg PO DAILY Qty: 30 0RF alfuzosin [Uroxatral] 10 mg tablet extended release 24 hr 10 mg PO DAILY Qty: 30 0RF Rx Instructions: administer after the same meal each day Continued losartan 50 mg tablet 50 mg PO DAILY Discontinued amlodipine [Norvasc] 5 mg tablet 5 mg PO DAILY Qty: 30 0RF loratadine 10 mg Tablet 10 mg PO DAILY Discharge Orders: Discharge Order (Routine); Ordered 12/28/22 Ordered By: Denny Rueda Diet: Advance to usual diet Activity on Discharge: As tolerated Stand Alone Forms: Patient Portal Discharge page Care Plan Goals: recovery from orthostatic hypotension Health Concerns: orthostatic hypotension urinary retention Plan of Treatment: stay hydrated follow up with uroligist Dr. reeder for voidin trial Assessment: melida hong
--- NOTE | 2022-12-28 11:53 | W.MHC.F2F ---
Service Date Service Date: 12/28/22 Encounter Date of encounter: 12/28/22 Reasons for Services Signs and symptoms assessed: physical deconditioning [place] - retention Reason for nursing home: teach disease management Reason for physical therapy: home safety and mobility and therapeutic exercises Homebound: Leaving the home is medically contraindicated at this time without the asist of a device and/or another person due th the listed conditions above and below. Reason homebound: unsteady gait / fall risk Certification: Based on the above findings, I certify that this patient is confined to the home and needs intermittent nursing home care, physical therapy and/or speech therapy, or continues to need occupational therapy. The patient is under my care, and I have initiated the establishment of the plan of care. The patient will be followed by a physician who will periodically review the plan of care. Time Spent With Patient Time: Total time managing care of this patient today ____ minutes.
== END 2022-12-28 16:48 | disposition home health service (06) ==
LOC: HO.ED 09:52 → HO.EDOVER 15:54 → HO.IMC 16:31
PROVIDERS: Physician Assistant; Admitting Provider Physician Assistant; Emergency Provider Emergency Medicine; PCP Internal Medicine; Visit Provider Student in an Organized Health Care Education/Training Program
DX: I95.1 Orthostatic hypotension (principal); R33.8 Other retention of urine; I49.1 Atrial premature depolarization; I12.9 Hypertensive chronic kidney disease with stage 1 through stage 4 chronic kidney disease, or unspecified chronic kidney disease; N17.9 Acute kidney failure, unspecified; N18.30 Chronic kidney disease, stage 3 unspecified; E86.0 Dehydration; K51.90 Ulcerative colitis, unspecified, without complications; D64.9 Anemia, unspecified; R94.4 Abnormal results of kidney function studies; Z85.048 Personal history of other malignant neoplasm of rectum, rectosigmoid junction, and anus; Z20.822 Contact with and (suspected) exposure to COVID-19
CPT/HCPCS: 36415; 70450; 71045; 80048; 80053; 81003; 82550; 83690; 83735; 83880; 84484; 85025; 85610; 85730; 87635; 93005; 96361; 96372; 96374; 97161; 99222; 99285; C1758; J1650; J2405; Q9967

== ENCOUNTER → 2022-12-24 09:42 | Outpatient (BNV) | payer MEDICARE, SELFPAY | PROVIDERS: Admitting Provider Physician Assistant; Emergency Provider Emergency Medicine; PCP Internal Medicine; Visit Provider Internal Medicine Cardiovascular Disease | DX: I49.1 Atrial premature depolarization (principal) | CPT/HCPCS: 93010 ==

== ENCOUNTER → 2022-12-24 15:42 | Outpatient (BNV) | payer MEDICARE, SELFPAY | PROVIDERS: Admitting Provider Physician Assistant; Emergency Provider Emergency Medicine; PCP Internal Medicine; Visit Provider Urology | DX: R33.9 Retention of urine, unspecified (principal) | CPT/HCPCS: 99221 ==

== ENCOUNTER → 2022-12-24 15:42 | Outpatient (BNV) | payer MEDICARE, SELFPAY | PROVIDERS: Admitting Provider Physician Assistant; Emergency Provider Emergency Medicine; PCP Internal Medicine; Visit Provider Physician Assistant | DX: N17.9 Acute kidney failure, unspecified (principal); R33.9 Retention of urine, unspecified; I95.1 Orthostatic hypotension; I49.1 Atrial premature depolarization | CPT/HCPCS: 99232; 99239; G0180 ==

== ENCOUNTER 2023-02-15 10:37 | Outpatient (AMB) | payer MEDICARE, SELFPAY ==
--- NOTE | 2023-02-15 10:53 | A.OFFVIS_ITS ---
Intake Intake Visit Reasons: 6w/s/p [facility] [place] Retention/Voiding Trial Intake Note: New Patient is Present for Voiding Trial Current Medication: Alfuzosin Antibiotic Allergy: None Blood Thinner: None Pharmacy: [facility] PVR: 298ml Allergies No Known Allergies [No Known Allergies*] Allergy (Verified 11/23/21 12:56) HPI HPI Comments History of Present Illness Details is a pleasant male. He is a patient of Dr. Howe. He seen for the following urologic conditions - urinary retention Voiding trial today High PVR No longer would like to have catheter Lower urinary tract symptoms Episode of retention in December 2022 - initial volume 1900 cc Trial alpha-jas alfuzosin Add finasteride 6 week follow-up PVR PFSH Medical History Arthritis Colon polyp HTN (hypertension) Hx of malignant neoplasm of rectum Knee effusion, left Rectal cancer Tubular adenoma of colon Ulcerative colitis Surgical History Hx of colonoscopy Family History Paternal Aunt No problems noted. Social History Household Members: Family and Other Household Members Other:: sister Housing: House Are you a primary rn patient care to a significant other at home: No Do you presently have visiting nurse or other home services: No Alcohol intake: current Alcohol intake frequency: a few times a month Alcohol type: hard liquor Patient Tobacco Use Status: Former Tobacco user Quit Date: 2002 Tobacco use type: Cigarette Second Hand Smoke Exposure: No service: No Current occupational status: retired Review of Systems Const Denies chills and Denies fever(s) Card Reports no additional complaints and Denies syncope Resp Denies cough GI Denies abdominal pain and Denies heartburn Reports as per HPI and Denies change in libido Neuro Denies syncope Psych Denies change in libido Endo Denies change in libido Physical Exam Const General: cooperative, healthy appearing, comfortable and no acute distress Orientation/consciousness: patient oriented x3 HEENT Face and sinus: Yes normal facial exam Mouth: moist mucous membranes Neck Neck: Yes normal visual inspection, Yes full ROM and Yes trachea midline Chest Chest palpation & inspection: normal inspection of the chest Resp Effort & Inspection: normal respiratory effort, able to speak in complete sentences and no respiratory distress GI Inspection: Yes normal to inspection Back/Spine/Pelvis Cervical Spine: normal cervical lordosis Thoracic/Lumbar Spine: thoracic and lumbar spine normal to inspection Skin General skin exam: no rashes or lesions noted Neuro General: patient oriented x3, gait normal, tone normal and moves all extremities Extrem General: Yes normal to inspection and Yes capillary refill normal Office Procedures Bladder/Catheter Procedure Details: 120 mls sterile water instilled into bladder, 16 fr cath removed. pt tolerated removal well, urinal given to measure output, MAs to bladder scan. 96037-Ruxacfqdmy of Bladder Procedure code (CPT) selection complete Post Void Residual Post Residual Void Post Void Residual (PVR): 298 [id number]-Ktgt Void Residual by ultrasound Assessment & Plan Assessment & Plan (1) Urinary retention with incomplete bladder emptying: Code(s): R33.9 - Retention of urine, unspecified Plan Add finasteride for combination therapy Orders: Orders AMB Post Void Residual by ultrasound Today R33.9 - Retention of urine, unspecified AMB Bladder/Catheter Procedure Today R33.9 - Retention of urine, unspecified Medications: New finasteride 5 mg PO DAILY 90 days 90 tabs 1RF N13.8 - Other obstructive and reflux uropathy, N40.1 - Benign prostatic hyperplasia with lower urinary tract symptoms, R33.9 - Retention of urine, unspecified Patient Instructions: Imaging studies, laboratory and physical exam results were discussed and reviewed in detail. No major barriers to patient understanding were identified. An opportunity to ask questions regarding the treatment plan was provided. All questions were answered. The patient expressed understanding and agreement with the above treatment plan. The patient is aware they should contact our office by phone for worsening of their current condition or the appearance of new urologic symptoms. Compliance is encouraged with any medications and followup testing that is ordered. It is a privilege to participate in the urologic care of your patient. If you have any questions or concerns regarding treatment for the above conditions, or other urologic issues, please do not hesitate to contact me. The office telephone contact is [phone]. This note is constructed using voice recognition software. While every effort has been made to ensure accuracy interior design professional errors may have been included. Yours sincerely, Dr Kalyan Vaughn MD, [facility] - Urology Providers of Expert, Compassionate Care for the Genitourinary System Coding Level of Care Code Est Pt Level 4 (30171) Diagnoses Urinary retention with incomplete bladder emptying R33.9 CPT Codes Bladder/Catheter Procedure - CPT: 75904-Sjymuyfmza of Bladder ([id number]) Post Residual Void - PVR CPT Code: 68306-Nuul Void Residual by ultrasound ([id number])
== END 2023-02-15 11:37 | disposition home or self-care (01) ==
PROVIDERS: PCP Internal Medicine; Visit Provider Urology
DX: R33.9 Retention of urine, unspecified (principal)
CPT/HCPCS: 51700; 99214

== ENCOUNTER → 2023-02-15 10:37 | Outpatient (BNVA) | payer MEDICARE, SELFPAY | PROVIDERS: PCP Internal Medicine; Visit Provider Urology | DX: R33.9 Retention of urine, unspecified (principal) | CPT/HCPCS: 51700; 51798; 99212 ==

== ENCOUNTER 2023-11-25 14:41 | Outpatient (REF) | payer MEDICARE, SELFPAY ==
[2023-11-25 15:30] LABS: Hematocrit 42.5 % (42.0-52.0); Hemoglobin 14.1 g/dl (14.0-18.0); Mean Corpuscular HGB Conc 33.2 g/dl (31.0-36.0); Mean Corpuscular Hemoglobin 31.9 pg (27.0-33.0); Mean Corpuscular Volume 96.2 fL (80.0-98.0); Mean Platelet Volume 9.5 fL (9.4-12.4); Platelet Count 217 X10*3/uL (160-400); Red Blood Count 4.42 X10*6/uL (4.60-5.80); Red Cell Distribution Width 14.5 % (11.0-16.0); White Blood Count 6.1 X10*3/uL (4.8-10.8)
[2023-11-25 16:09] LABS: Alanine Aminotransferase 9 U/L (0-40); Albumin Level 3.7 g/dL (3.5-5.0); Alkaline Phosphatase 95 U/L (39-117); Anion Gap 15 (12-20); Aspartate Amino Transferase 12 U/L (5-37); Bilirubin Total 1.3 mg/dL (0.0-1.0); Blood Urea Nitrogen 21 mg/dL (9-16); Calcium 8.6 mg/dL (8.4-10.2); Carbon Dioxide 23 mmol/L (22-29); Chloride 106 mmol/L (96-108); Estimated Glomerular Filt Rate 39; Glucose Random 156 mg/dL (60-115); Potassium 3.9 mmol/L (3.3-5.1); Sodium 140 mmol/L (135-145); Total Protein 6.9 g/dL (6.5-8.0)
== END 2023-11-25 14:42 | disposition home or self-care (01) ==
LOC: HO.LAB 14:41
PROVIDERS: PCP Internal Medicine; Visit Provider Internal Medicine
DX: C20 Malignant neoplasm of rectum (principal)
CPT/HCPCS: 36415; 80053; 85027

== ENCOUNTER 2024-05-22 14:30 | Outpatient (AMB) | payer MEDICARE, SELFPAY ==
--- NOTE | 2024-05-22 14:44 | A.OFFVIS_ITS ---
Intake Visit Reasons: PVR follow up Intake Note: Patient presents today for follow up on: incomplete bladder emptying and retention Current Medication: Alfuzosin, finasteride (pt stated that he doesn't have anymore) Antibiotic Allergy: None Blood Thinner: None Pharmacy: [facility] PVR: 628ml's Fish Liver Sorter Required: No Accompanied by: Self / Same As Patient Allergies No Known Allergies [No Known Allergies*] Allergy (Verified 05/22/24 15:10) Medication List - Last Reconciled 05/22/24 by BETH Jarertt alfuzosin ER (Uroxatral) 10 mg PO DAILY 90 days finasteride 5 mg PO DAILY 90 days losartan 50 mg PO DAILY metoprolol succinate ER (Toprol XL) 25 mg PO DAILY HPI Comments Details: is 89-year-old male patient of Dr. Howe. He has a past medical history of ulcerative colitis, rectal cancer, arthritis, and hypertension. He presents to the office today for follow-up of his urinary retention. In discussion with the patient today he reports he has not been able to be compliant with alfuzosin and finasteride as he ran out of medications. He is vague during today's office visit as well as assessment. He discusses his recent hospitalization at [facility] however is unsure as to why and what this entailed. He reports feeling at times he has difficulty initiating urinary stream. Unable to obtain urine for urinalysis today. PVR 628 mL. We discussed urinary retention and further treatment options to include CIC verses indwelling Wesley catheter however patient is adamantly refusing any further treatment as his time as he does not feel this is necessary. He discusses having had multip le Wesley catheters in the past and feels this is only making things worse. We discussed affects of urinary retention without treatment. However despite Education he continues to refuse further treatment options at this time. He denies incontinence, nocturia, hematuria, dysuria, foul smelling urine, changes to urinary stream, flank pain, fever, and or chills. In review of patient's chart it appears during last office visit patient continued to refuse catheter and recommendations were made for 6 week follow-up however this never occurred. He otherwise offers no other issues or concerns at this time. [facility] Medical History Hx of malignant neoplasm of rectum Tubular adenoma of colon Ulcerative colitis Rectal cancer Arthritis Colon polyp HTN (hypertension) Knee effusion, left Surgical History Hx of colonoscopy Family History Paternal Aunt No problems noted. Social History Household Members: Family and Other Household Members Other:: sister Housing: House Are you a primary vehicle care specialist to a significant other at home: No Do you presently have visiting nurse or other home services: No Alcohol intake: current Alcohol intake frequency: a few times a month Alcohol type: hard liquor Patient Tobacco Use Status: Former Tobacco user Tobacco use type: Cigarette Second Hand Smoke Exposure: No service: No Current occupational status: retired Review of Systems Const Reports as per HPI Eyes Reports no additional complaints ENT Reports no additional complaints Card Reports as per HPI Resp Reports no additional complaints GI Reports as per HPI Reports as per HPI Musc Reports as per HPI Neuro Reports as per HPI Psych Reports no additional complaints Endo Reports no additional complaints Zion/Lymph Reports no additional complaints Aller/Immun Reports no additional complaints Physical Exam Const General: cooperative, healthy appearing, comfortable, no acute distress, well developed, alert and awake Orientation/consciousness: patient oriented x3 HEENT Head: Yes normal to inspection, Yes normocephalic and Yes atraumatic Ears: hearing grossly normal bilaterally Eyes General: appearance normal, both eyes and all related structures Neck Neck: Yes normal visual inspection and Yes trachea midline Chest Chest palpation & inspection: normal inspection of the chest Resp Effort & Inspection: normal respiratory effort and able to speak in complete sentences Cardio Rate: regular rate GI Inspection: Yes normal to inspection General: Yes no CVA tenderness Back/Spine/Pelvis Back: no CVA tenderness Skin General skin exam: no rashes or lesions noted Neuro General: patient oriented x3 Extrem General: Yes normal to inspection Psych Appearance: grossly normal and well kempt Mental Status: mental status grossly normal Speech and movement: Normal speech and movement present and Clear speech present Affect: normal affect Attitude: cooperative Thought process: Normal thought process present Thought content: Normal thought content present Insight: Fair insight present (Psych) Judgement: Fair judgement present (Psych) Office Procedures Post Void Residual Post Residual Void Post Void Residual (PVR): 628 32269-Owzw Void Residual by ultrasound Assessment & Plan Assessment & Plan (1) Urinary retention with incomplete bladder emptying: Code(s): R33.9 - Retention of urine, unspecified Category: Medical Plan Unable to obtain urine for urinalysis however PVR 628 mL. We discussed further workup to include retroperitoneal ultrasound as well as PSA however patient declines at this time. We discussed at length potential causes and affects of incomplete bladder emptying/urinary retention. We discussed further treatment options to include CIC verses indwelling Wesley; he declines at this time despite Education providing risks of these urological issues and concerns. Refill provided on alfuzosin and finasteride. Follow-up in 2-4 weeks with PVR; or sooner with any issues, concerns, and or questions. Orders: Orders AMB Post Void Residual by ultrasound Today R33.9 - Retention of urine, unspecified Medications: Changed From alfuzosin ER (Uroxatral) administer after the same meal each day 10 mg PO DAILY 30 tabs 0RF To alfuzosin ER (Uroxatral) administer after the same meal each day 10 mg PO DAILY 90 tabs 1RF 90 days Refilled finasteride 5 mg PO DAILY 90 tabs 1RF 90 days N13.8 - Other obstructive and reflux uropathy, N40.1 - Benign prostatic hyperplasia with lower urinary tract symptoms, R33.9 - Retention of urine, unspecified Patient Instructions: The patient had an opportunity to ask questions regarding the treatment plan. All questions were answered. Physical exam, labs, and imaging were discussed and reviewed in detail. As well as risks, benefits, and discussion of treatment choices. No major barriers to understanding were identified. The patient expressed understanding and agreement with the above treatment plan. The patient was made aware they should contact our office by phone for worsening of their current condition, the appearance of new symptoms, or with any questio ns or concerns. Compliance is encouraged with any medications and follow up testing that is ordered. It is a privilege to be allowed the opportunity to participate in? your urological care.? Again, if you have any questions or concerns If you have any questions or concerns please do not hesitate to contact me. The office is [phone]. This note is constructed using voice recognition software. While every effort has been made to ensure accuracy storage administrator errors may have been included. Yours sincerely, KIANA Jarrett-NOE Coding Level of Care Code Est Pt Level 3 (79440) Complex EM visit Add On G2211 Diagnoses Urinary retention with incomplete bladder emptying R33.9 CPT Codes Post Residual Void - PVR CPT Code: 89143-Hjme Void Residual by ultrasound ([id number])
== END 2024-05-22 15:15 | disposition home or self-care (01) ==
PROVIDERS: PCP Internal Medicine; Visit Provider Nurse Practitioner Family
DX: R33.9 Retention of urine, unspecified (principal)
CPT/HCPCS: 99213; G2211

== ENCOUNTER → 2024-05-22 14:30 | Outpatient (BNVA) | payer MEDICARE, SELFPAY | PROVIDERS: PCP Internal Medicine; Visit Provider Nurse Practitioner Family | DX: R33.9 Retention of urine, unspecified (principal) | CPT/HCPCS: 51798; 99212 ==

== ENCOUNTER → 2024-06-18 14:16 | Outpatient (BNVA) | payer MEDICARE, SELFPAY | PROVIDERS: PCP Internal Medicine; Visit Provider Nurse Practitioner Family | DX: R33.9 Retention of urine, unspecified (principal) | CPT/HCPCS: 51798 ==

== ENCOUNTER 2024-09-19 10:10 | Outpatient (AMB) | payer MEDICARE, SELFPAY ==
--- NOTE | 2024-09-19 10:11 | MHC.OFFVIS ---
Intake Visit Reasons: 8w follow up Intake Note: Patient is present for 8W F/U Urology Medication:TERAZOSIN,FINASTERIDE Antibiotic Allergy:NONE Blood Thinner:NONE TODAY'S PVR: 541ML'S Crop Duster Required: No Allergies No Known Allergies [No Known Allergies*] Allergy (Verified 09/19/24 10:51) Medication List - Last Reconciled 09/19/24 by KIANA Jarrett-NOE bethanechol chloride 50 mg PO BID 30 days finasteride 5 mg PO DAILY 90 days losartan 50 mg PO DAILY metoprolol succinate ER (Toprol XL) 25 mg PO DAILY terazosin 5 mg PO BEDTIME 30 days HPI Comments Details: is 89-year-old male patient of Dr. Howe. He has a past medical history of ulcerative colitis, rectal cancer, arthritis, and hypertension. He presents to the office today for follow-up of his urinary retention. In discussion with the patient today he reports to be doing and feeling well. Of note, patient was last seen approximately 4 months ago at which time his alfuzosin was discontinued and he was started on terazosin to assist with incomplete bladder emptying/urinary retention. In office urinalysis results reviewed with the patient today. PVR 541ml's. We discussed slight decrease in PVR however PVR remains high. He is adamant that he does not wish to undergo treatments for urinary retention and or incomplete bladder emptying. We discuss trial of bethanechol. We discussed affects of urinary retention without treatment. However despite Education he continues to refuse further treatment options at this time. He denies incontinence, nocturia, hematuria, dysuria, foul smelling urine, changes to urinary stream, flank pain, fever, and or chills. He otherwise offers no other issues or concerns at this time. Plan The patient will continue finasteride and terazosin, with bethanechol added to enhance bladder contractility. The patient was informed of the potential need for further intervention if medications do not resolve the urinary retention fully. I discussed potential side effects and the necessity of reporting any adverse symptoms resulting from the new medication. The patient consented to this treatment modification, and we agreed on regular follow-ups to assess progress with this adjusted plan. Patient was informed and verbally consented to the use of an ambient scribe for clinic note documentation during this visit. Discussion Notes I explained comprehensively to the patient the details surrounding his chronic urinary retention/ incomplete bladder emtying and suggested adding bethanechol to his regimen to help improve bladder contractility. We discussed the importance of exploring non-invasive treatments before considering surgical intervention, given his apprehension about procedures. The patient was informed of risks associated with urinary retention, including potential renal complications, and I advised him thoroughly on identifying potential side effects of new medication. Consent was explicitly obtained, with alternatives presented, emphasizing his right to refuse procedures. We established a plan for regular follow-up visits to monitor progress and reassess the strategy as necessary. [facility] Medical History Hx of malignant neoplasm of rectum Tubular adenoma of colon Ulcerative colitis Rectal cancer Arthritis Colon polyp HTN (hypertension) Knee effusion, left Surgical History Hx of colonoscopy Family History Paternal Aunt No problems noted. Social History Household Members: Family and Other Household Members Other:: sister Housing: House Are you a primary resident care provider to a significant other at home: No Do you presently have visiting nurse or other home services: No Alcohol intake: current Alcohol intake frequency: a few times a month Alcohol type: hard liquor Patient Tobacco Use Status: Former Tobacco user Tobacco use type: Cigarette Second Hand Smoke Exposure: No service: No Current occupational status: retired Review of Systems Const Reports as per HPI Eyes Reports no additional complaints ENT Reports no additional complaints Card Reports as per HPI Resp Reports no additional complaints GI Reports as per HPI Reports as per HPI Musc Reports as per HPI Neuro Reports as per HPI Psych Reports no additional complaints Endo Reports no additional complaints Zion/Lymph Reports no additional complaints Aller/Immun Reports no additional complaints Physical Exam Const General: cooperative, healthy appearing, comfortable, no acute distress, well developed, alert and awake Orientation/consciousness: patient oriented x3 Limitations: other limitations (hard of hearing ) HEENT Head: Yes normal to inspection, Yes normocephalic and Yes atraumatic Ears: hearing grossly normal bilaterally Eyes General: appearance normal, both eyes and all related structures Neck Neck: Yes normal visual inspection and Yes trachea midline Chest Chest palpation & inspection: normal inspection of the chest Resp Effort & Inspection: normal respiratory effort and able to speak in complete sentences Cardio Rate: regular rate GI Inspection: Yes normal to inspection General: Yes no CVA tenderness Back/Spine/Pelvis Back: no CVA tenderness Skin General skin exam: no rashes or lesions noted Neuro General: patient oriented x3 Extrem General: Yes normal to inspection Psych Appearance: grossly normal and well kempt Mental Status: mental status grossly normal Speech and movement: Normal speech and movement present and Clear speech present Affect: normal affect Attitude: cooperative Thought process: Normal thought process present Thought content: Normal thought content present Insight: Fair insight present (Psych) Judgement: Fair judgement present (Psych) Office Procedures Post Void Residual Post Residual Void Post Void Residual (PVR): 541 31250-Znsk Void Residual by ultrasound Assessment & Plan Assessment & Plan (1) Urinary retention with incomplete bladder emptying: Code(s): R33.9 - Retention of urine, unspecified Category: Medical Plan In office urinalysis results with the patient today; as noted above. PVR 514 mL. Continue terazosin and finasteride Start bethanechol as discussed and prescribed. We discussed at length potential causes of untreated urinary retention with incomplete bladder emptying. Will obtain BUN, creatinine, and PSA for further assessment evaluation. We discussed further treatment options and risks and benefits of these treatment options. Patient continues to decline further intervention such as CIC verses indwelling Wesley catheter verses suprapubic tube Follow-up in 1-3 months with PVR; or sooner with any issues, concerns, and or questions. Orders: Orders Creatinine Today R33.9 - Retention of urine, unspecified Prostate Specific Antigen Today R33.9 - Retention of urine, unspecified Blood Urea Nitrogen Today R33.9 - Retention of urine, unspecified AMB Urinalysis Automated Today Z13.9 - Encounter for screening, unspecified Medications: New bethanechol chloride 50 mg PO BID 60 tabs 3RF 30 days N39.0 - Urinary tract infection, site not specified Patient Instructions: The patient had an opportunity to ask questions regarding the treatment plan. All questions were answered. Physical exam, labs, and imaging were discussed and reviewed in detail. As well as risks, benefits, and discussion of treatment choices. No major barriers to understanding were identified. The patient expressed understanding and agreement with the above treatment plan. The patient was made aware they should contact our office by phone for worsening of their current condition, the appearance of new symptoms, or with any questions or concerns. Compliance is encouraged with any medications and follow up testing that is ordered. It is a privilege to be allowed the opportunity to participate in? your urological care.? Again, if you have any questions or concerns If you have any questions or concerns please do not hesitate to contact me. The office is [phone]. This note is constructed using voice recognition software. While every effort has been made to ensure accuracy psychiatric mental health nurse errors may have been included. Yours sincerely, ANGELA Jarrett Coding Level of Care Code Est Pt Level 4 (46166) Complex EM visit Add On G2211 Diagnoses Urinary retention with incomplete bladder emptying R33.9 CPT Codes Post Residual Void - PVR CPT Code: 82058-Dhzh Void Residual by ultrasound ([id number])
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
--- OUTSIDE RECORDS SUMMARY | 2024-09-19 11:45 | XMS_ITS ---
Author Organization [facility] Address [address] [place] [address] Care Team Providers Care Bunk House Worker Name Role Phone Kervin Howe MD Primary Care Provider Roderick Cole Unavailable [phone] Encounters Encounter Location Date Provider Diagnosis [facility] [address] [place] [address] 10/04/2023 Roderick Rutherford Plan Of Treatment No Information Progress Notes * John MEZADOB:1935 ( 89 yo M)Acc No.[id number]:10/04/2023 Progress Notes Patient:?John MEZA Provider:?Roderick Rutherford DPM :1935???Age:88 Y???Sex:Male Noah e:10/04/2023 Address:[address] [place], [place] [id number] Pcp:Kervin Howe MD Subjective: * Chief Complaints: * ??? * Medical History:? Objective: * Vitals:? Assessment: Plan: * Treatment: * Images: * The named appointment provid er may or may not be the originator of this progress note, and it is not deemed complete until electronically signed by the appointment provider. Sign off status: Pending * Provider:?Roderick Rutherford DPM Date:?2023 Generated for Amador coto/Rosalind/Gertrudisransmitting on:?09/19/2024 11:45 AM EDT
--- OUTSIDE RECORDS SUMMARY | 2024-09-19 11:45 | XMS_ITS | Patient Health Record ---
Author Organization [facility] Address [address] [place] [address] Care Team Providers Care Farmworker [employer]cing [employer] Name Role Phone Kervin Howe MD Primary Care Provider Roderick Cole Unavailable [phone] Reason For Referral No Information Encounters Encounter Location Date Provider Diagnosis [facility] [address] [place] [address] 09/22/2023 Roderick Rutherford Plan Of Treatment No Information Insurance Providers Payer Name Payer Address Payer Phone Subscriber Number Group Number Insured Name Patient Relationship to Insured Coverage Start Date Coverage End Date Medicare National [facility] [address] [place] [address] [id number] John Meza Self - patient is the insured
--- OUTSIDE RECORDS SUMMARY | 2024-09-19 11:45 | XMS_ITS ---
Author Organization [facility] Address [address] [place] [address] Care Team Providers Care Digital Print Operator Name Role Phone Kervin Howe MD Primary Care Provider Roderick Cole Unavailable [phone] REASON FOR VISIT cx PSYCHIATRIC TECH 10/03 Encounters Encounter Location Date Provider Diagnosis [facility] [address] [place] [address] 09/22/2023 Roderick Rutherford Plan Of Treatment No Information Progress Notes * MOON DOB:1935 ( 88 yo M)Acc No.[id number]:09/22/2023 Patient:?John Meza :1935???Age:88 Y???Sex:Male Address:[address] [place] [id number] * true * Date:? Generated for Yancyi ng/Crystalg/eTransmitting on:?09/19/2024 11:45 AM EDT
== END 2024-09-19 10:47 | disposition home or self-care (01) ==
PROVIDERS: PCP Internal Medicine; Visit Provider Nurse Practitioner Family
DX: Z13.9 Encounter for screening, unspecified (principal); R33.9 Retention of urine, unspecified
CPT/HCPCS: 99214; G2211

== ENCOUNTER → 2024-09-19 10:10 | Outpatient (BNVA) | payer MEDICARE, SELFPAY | PROVIDERS: PCP Internal Medicine; Visit Provider Nurse Practitioner Family | DX: R33.9 Retention of urine, unspecified (principal); N39.0 Urinary tract infection, site not specified | CPT/HCPCS: 51798; 81003; 99212 ==

== ENCOUNTER 2024-12-20 14:09 | Outpatient (REF) | payer MEDICARE, SELFPAY ==
[2024-12-20 15:35] LABS: Blood Urea Nitrogen 15 mg/dL (9-16); Estimated Glomerular Filt Rate 53
[2024-12-20 15:55] LABS: Prostate Specific Antigen 0.52 ng/mL (<0.05-4.0)
== END 2024-12-20 14:10 | disposition home or self-care (01) ==
LOC: HO.LAB 14:09
PROVIDERS: PCP Internal Medicine; Visit Provider Nurse Practitioner Family
DX: R33.9 Retention of urine, unspecified (principal); I10 Essential (primary) hypertension; Z79.899 Other long term (current) drug therapy; Z12.5 Encounter for screening for malignant neoplasm of prostate
CPT/HCPCS: 36415; 51798; 82565; 84153; 84520; 99212

== ENCOUNTER 2024-12-20 14:38 | Outpatient (AMB) | payer MEDICARE, SELFPAY ==
--- NOTE | 2024-12-20 14:48 | A.OFFVIS_ITS ---
Intake Visit Reasons: 3m/ PVR Intake Note: Patient presents today for follow up on: Retention Urology Medication:Terazosin, Bethanechol, Finasteride Antibiotic Allergy:NONE Blood Thinner:NONE PVR: 434ml's Dinking Machine Operator Required: No Accompanied by: Self / Same As Patient Allergies No Known Allergies (No Known Allergies*) Allergy (Verified 12/20/24 15:43) Medication List - Last Reconciled 12/20/24 by ANGELA Jarrett bethanechol chloride 50 mg PO BID 30 days finasteride 5 mg PO DAILY 90 days losartan 50 mg PO DAILY metoprolol succinate ER (Toprol XL) 25 mg PO DAILY terazosin 5 mg PO BEDTIME 30 days HPI Comments Details: is 89-year-old male patient of Dr. Howe. He has a past medical history of ulcerative colitis, rectal cancer, arthritis, and hypertension. He presents to the office today for follow-up of his urinary retention. In discussion with the patient today he reports to be doing and feeling well. He denies having had any bothersome urinary issues or concerns. He reports compliance with bethanechol, finasteride, and terazosin as prescribed. Unable to obtain urine for urinalysis today as patient unable to void however PVR 434 mL. PVR remains elevated however this has been slightly decreasing over the last 2-3 follow-ups. We did discussed further interventions of incomplete bladder emptying/urinary retention as well as causes and affects of incomplete bladder emptying and urinary retention. He is adamant that he does not wish to undergo treatments for urinary retention and or incomplete bladder emptying. We discussed affects of urinary retention without treatment. However despite Education he continues to refuse further treatment options at this time. He denies incontinence, nocturia, hematuria, dysuria, foul smelling urine, changes to urinary stream, flank pain, fever, and or chills. PSA was ordered during last office visit however remains pending as patient recently went to the lab today. Will await results. He otherwise offers no other issues or concerns at this time. [facility] Medical History Hx of malignant neoplasm of rectum Tubular adenoma of colon Ulcerative colitis Rectal cancer Arthritis Colon polyp HTN (hypertension) Knee effusion, left Surgical History Hx of colonoscopy Family History Paternal Aunt No problems noted. Social History Household Members: Family and Other Household Members Other:: sister Housing: House Are you a primary housekeeper caregiver to a significant other at home: No Do you presently have visiting nurse or other home services: No Alcohol intake: current Alcohol intake frequency: a few times a month Alcohol type: hard liquor Patient Tobacco Use Status: Former Tobacco user Tobacco use type: Cigarette Second Hand Smoke Exposure: No service: No Current occupational status: retired Review of Systems Const Reports as per HPI Eyes Reports no additional complaints ENT Reports no additional complaints Card Reports as per HPI Resp Reports no additional complaints GI Reports as per HPI Reports as per HPI Musc Reports as per HPI Neuro Reports as per HPI Psych Reports no additional complaints Endo Reports no additional complaints Zion/Lymph Reports no additional complaints Aller/Immun Reports no additional complaints Physical Exam Const General: cooperative, healthy appearing, comfortable, no acute distress, well developed, alert and awake Orientation/consciousness: patient oriented x3 Limitations: other limitations (hard of hearing ) HEENT Head: Yes normal to inspection, Yes normocephalic and Yes atraumatic Ears: hearing grossly normal bilaterally Eyes General: appearance normal, both eyes and all related structures Neck Neck: Yes normal visual inspection and Yes trachea midline Chest Chest palpation & inspection: normal inspection of the chest Resp Effort & Inspection: normal respiratory effort and able to speak in complete sentences Cardio Rate: regular rate GI Inspection: Yes normal to inspection General: Yes no CVA tenderness Back/Spine/Pelvis Back: no CVA tenderness Skin General skin exam: no rashes or lesions noted Neuro General: patient oriented x3 Extrem General: Yes normal to inspection Psych Appearance: grossly normal and well kempt Mental Status: mental status grossly normal Speech and movement: Normal speech and movement present and Clear speech present Affect: normal affect Attitude: cooperative Thought process: Normal thought process present Thought content: Normal thought content present Insight: Fair insight present (Psych) Judgement: Fair judgement present (Psych) Office Procedures Post Void Residual Post Residual Void Post Void Residual (PVR): 434 [id number] Void Residual by ultrasound Assessment & Plan Assessment & Plan (1) Urinary retention with incomplete bladder emptying: Code(s): R33.9 - Retention of urine, unspecified Category: Medical Plan In office urinalysis results with the patient today; as noted above. PVR 434mL. Continue terazosin, finasteride, and bethanechol. We discussed at length potential causes of untreated urinary retention with incomplete bladder emptying. Labs remain pending We discussed further treatment options and risks and benefits of these treatment options. Patient continues to decline further intervention such as CIC verses indwelling Wesley catheter verses suprapubic tube Follow-up in 4-6 months months with PVR; or sooner with any issues, concerns, and or questions. Orders: Orders AMB Post Void Residual by ultrasound Today R33.9 - Retention of urine, uns pecified Patient Instructions: The patient had an opportunity to ask questions regarding the treatment plan. All questions were answered. Physical exam, labs, and imaging were discussed and reviewed in detail. As well as risks, benefits, and discussion of treatment choices. No major barriers to understanding were identified. The patient ex pressed understanding and agreement with the above treatment plan. The patient was made aware they should contact our office by phone for worsening of their current condition, the appearance of new symptoms, or with any questions or concerns. Compliance is encouraged with any medications and follow up testing that is ordered. It is a privilege to be allowed the opportunity to participate in? your urological care.? Again, if you have any questions or concerns If you have any questions or concerns please do not hesitate to contact me. The office is [phone]. This note is constructed using voice recognition software. While every effort has been made to ensure accuracy conditioning machine operator errors may have been included. Yours sincerely, ANGELA Jarrett Coding Level of Care Code Est Pt Level 3 (29489) Complex EM visit Add On G2211 Diagnoses Urinary retention with incomplete bladder emptying R33.9 CPT Codes Post Residual Void - PVR CPT Code: 96002-Kdbz Void Residual by ultrasound ([id number])
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
== END 2024-12-20 15:46 | disposition home or self-care (01) ==
LOC: HO.HUSH 14:38
PROVIDERS: PCP Internal Medicine; Visit Provider Nurse Practitioner Family
DX: R33.9 Retention of urine, unspecified (principal)
CPT/HCPCS: 99213; G2211